=== PATIENT | male | born 1950 | race Caucasian/White ===

== ENCOUNTER → 2016-02-16 | Outpatient (CLI) | payer MEDICARE ==
[~2016-02-16] MED LIST: ACET50TA PO; LEVO500I7 PO; fosinopril PO
== END | disposition home or self-care (01) ==
LOC: M RAD 13:43
PROVIDERS: ATTEND Internal Medicine Medical Oncology
DX: C66.9 Malignant neoplasm of unspecified ureter (principal); Z53.8 Procedure and treatment not carried out for other reasons

== ENCOUNTER → 2016-02-24 | Outpatient (REF) | payer MEDICARE ==
[2016-02-24 20:17] LABS: THYROXINE (T4) 12.3 UG/DL (4.5-12.0)
== END ==
LOC: M LAB REF 16:34
PROVIDERS: ATTEND Internal Medicine Medical Oncology
DX: C77.2 Secondary and unspecified malignant neoplasm of intra-abdominal lymph nodes (principal); C65.2 Malignant neoplasm of left renal pelvis; C67.9 Malignant neoplasm of bladder, unspecified

== ENCOUNTER → 2016-03-01 | Outpatient (CLI) | payer MEDICARE ==
[~2016-03-01] MED LIST changes: +AMLO5TAB2 PO; +AMOX500T2 PO; +FERR325T PO; +FOSI20TA PO; +GABA300C3 PO; +INDO50CA PO; +MILKSUS PO; +MIRA33504 PO; +NORCOTAB PO; +OXYC1TAB23 PO; +OXYC20TA21 PO; +PANT40TA2 PO; +SENN1TAB2 PO; +TARTCAP PO; +VITA10002 PO; +ZYLO300T4 PO
--- NOTE | 2016-03-01 17:17 | REP ---
PET/CT: History: Ureteral carcinoma, metastatic. Monitoring response to systemic treatment. The patient is status-post left nephrectomy. Comparisons: Comparison PET-CT study 05/07/2014. TECHNIQUE: 69 minutes following the intravenous injection of a 8.5 mCi dose of F-18 FDG, three-dimensional PET scintigraphy is acquired from the skull base to the proximal thighs. Triplanar noncontrast CT scanning is acquired through the same anatomic range for attenuation correction, and image registration with scan parameters optimized to minimize radiation exposure to the patient. PET scintigraphy and CT datasets were fused and displayed on a workstation with multiplanar and projection display capability. PET/CT Findings: The patient's known right middle lobe lung mass is hypermetabolic: Maximum standard uptake value is 12.7. There is no other abnormal hypermetabolic uptake in the lung parenchyma. Head and neck soft-tissues are unremarkable. There are unfortunately multiple large hypermetabolic mass is distributed in the right lobe and left lobe of the liver. Maximum SUV value within these ranges up to 10.3. The largest of these is a confluent lesion measuring 12 cm. There are 9-10 separate liver mass lesions which are hypermetabolic. No abnormal adrenal uptake is seen. No abnormal uptake is seen in the left nephrectomy bed or along the course of the left ureter or retroperitoneum. No other abnormal hypermetabolic uptake is seen in the abdomen or pelvis. There is a focus of abnormal hypermetabolic uptake to the right of midline in the L5 vertebral body with maximum SUV value 7.2. This is compatible with a bony metastasis. Hypermetabolic uptake is also noted in a large lesion in the T9 vertebral body which extends through the pedicle on the left side into the posterior elements and which is associated with collapse. There appears to be epidural hypermetabolic uptake which raises a question of cord compression. Recommend thoracic spine MRI study without and with IV gadolinium. This is a new lesion when compared with prior chest CT study of 10/08/2015. No other hypermetabolic skeletal focus is seen. Impression: Unfortunately there is evidence of progressive metastatic disease with multiple hepatic metastases, two skeletal metastases, and one hypermetabolic mass in the right middle lobe of the lung. The T9 lesion in the thoracic spine shows findings suggestive of epidural disease and cord compression. Recommend thoracic spine MRI study for further evaluation of this. Signed by Nathan Garcia MD 03/01/2016 08:16 P
== END ==
LOC: M RAD 12:43
PROVIDERS: ATTEND Internal Medicine Medical Oncology
DX: C79.19 Secondary malignant neoplasm of other urinary organs (principal)
CPT/HCPCS: 78815; A9552

== ENCOUNTER 2016-03-02 14:24 | Outpatient (RCR) | payer MEDICARE ==
[~2016-03-02 14:24] MED LIST changes: -AMLO5TAB2 PO; -FOSI20TA PO; -INDO50CA PO; -OXYC1TAB23 PO; -TARTCAP PO; -VITA10002 PO; -ZYLO300T4 PO
[2016-03-06] MEDS ORDERED: AMLO5TAB2 PO (21:16)
[2016-03-06] MEDS ORDERED: INDO50CA PO (21:16)
[2016-03-06] MEDS ORDERED: ZYLO300T4 PO (21:16)
[2016-03-06] MEDS ORDERED: TARTCAP PO (21:16)
[2016-03-06] MEDS ORDERED: FOSI20TA PO (21:16)
[2016-03-06] MEDS ORDERED: OXYC1TAB23 PO (21:16)
[2016-03-06] MEDS ORDERED: VITA10002 PO (21:16)
--- NOTE | 2016-03-14 08:07 | RADONC ---
RADIATION ONCOLOGY PROGRESS NOTE DATE: 03/13/2016 Mr. Tejeda is presently at a dose of 2400 cGy to his thoracic spine and 900 cGy to his lumbar spine region. He is tolerating treatments quite well with no complaints at this time related to his radiation therapy. The patient reports that generally being in hospital he is getting pain medication which is controlling his pain. He is quite concerned about being discharged and not having enough narcotics. The patient's review of systems is positive for continued back pain but is otherwise noncontributory. He denies nausea, vomiting, fevers, chills, night sweats, diplopia, headaches, anxiety or depression, anorexia, weight loss, visual disturbances, chest pain, urinary or bowel difficulties, bone pain, or neurological problems. PHYSICAL EXAMINATION: The patient's skin is in good condition with no evidence of moist or dry desquamation. The remainder of his physical exam remains unchanged. Mr. Tejeda is tolerating treatments quite well and radiation will continue as scheduled.
[2016-03-14] MEDS ORDERED: FERR325T PO (12:43)
[2016-03-14] MEDS ORDERED: OXYC20TA21 PO (12:43)
[2016-03-14] MEDS ORDERED: MILKSUS PO (12:43)
[2016-03-14] MEDS ORDERED: PANT40TA2 PO (12:43)
[2016-03-14] MEDS ORDERED: MIRA33504 PO (12:43)
[2016-03-14] MEDS ORDERED: GABA300C3 PO (12:43)
[2016-03-14] MEDS ORDERED: NORCOTAB PO (12:43)
[2016-03-14] MEDS ORDERED: SENN1TAB2 PO (12:43)
[2016-03-14] MEDS ORDERED: AMOX500T2 PO (12:43)
== END 2016-03-14 ==
LOC: M ONCR 14:24
PROVIDERS: ATTEND Radiology Radiation Oncology
DX: C79.51 Secondary malignant neoplasm of bone (principal); C66.2 Malignant neoplasm of left ureter

== ENCOUNTER → 2016-03-02 | Outpatient (CLI) | payer MEDICARE ==
[~2016-03-02] MED LIST changes: -AMOX500T2 PO; -FERR325T PO; -GABA300C3 PO; -MILKSUS PO; -MIRA33504 PO; -NORCOTAB PO; -OXYC20TA21 PO; -PANT40TA2 PO; -SENN1TAB2 PO
== END ==
LOC: M ONCR 13:14
PROVIDERS: ATTEND Radiology Radiation Oncology
DX: C66.2 Malignant neoplasm of left ureter (principal); C79.51 Secondary malignant neoplasm of bone

== ENCOUNTER 2016-03-06 13:46 | Inpatient (IN) | payer MEDICARE ==
[~2016-03-06] VITALS: Ht 165.1 cm; Wt 107.5 kg
[~2016-03-06 13:46] MED LIST changes: -AMLO5TAB2 PO; -FOSI20TA PO; -INDO50CA PO; -OXYC1TAB23 PO; -TARTCAP PO; -VITA10002 PO; -ZOSYN 3.375 GM VIAL (J2543) As Ordered ONE; -ZYLO300T4 PO; -cefTRIAXone SOD 1 GM VIAL (J0696) As Ordered ONE
[2016-03-06] MEDS ORDERED: MORPHINE 4 MG/ML 1ML SYRINGE As Ordered ONE (14:23)
--- NOTE | 2016-03-06 15:31 | REP ---
Chest x-ray: Two views. History: Cough. Findings: Semi-erect AP and cross-table lateral views are presented. There is a 2.8 cm mass in the right upper lobe region again noted. This appears larger. No new infiltrate is seen. Heart is not enlarged. Pleural angles are sharp. There is mild wedging in one of the lower thoracic vertebrae which likely corresponds to the T9 lesion seen on PET/CT. Impression: No acute infiltrate. Right lung mass and slightly wedged lower thoracic vertebra noted. Signed by Nathan Garcia MD 03/06/2016 05:14 P
[2016-03-06] MEDS ORDERED: HYDROmorphone HCL 1 MG/ML SYRINGE (J1170) As Ordered ONE ×3 (16:50→23:25)
[2016-03-06] MEDS ORDERED: INDO50CA PO (21:16)
[2016-03-06] MEDS ORDERED: ZYLO300T4 PO (21:16)
[2016-03-06] MEDS ORDERED: VITA10002 PO (21:16)
[2016-03-06] MEDS ORDERED: OXYC1TAB23 PO (21:16)
[2016-03-06] MEDS ORDERED: TARTCAP PO (21:16)
[2016-03-06] MEDS ORDERED: AMLO5TAB2 PO (21:16)
[2016-03-06] MEDS ORDERED: FOSI20TA PO (21:16)
[2016-03-06] MEDS: NS 1,000 ML IV SCH (22:19)
[2016-03-06] MEDS ORDERED: NS 1,000 ML IV SCH (22:19)
[2016-03-06] MEDS ORDERED: ONDANSETRON 4MG/2ML VIAL (J2405) IV PRN (22:30)
[2016-03-06] MEDS ORDERED: diphenhydrAMINE INJ 50MG/ML VIAL (J1200) IV PRN (22:30)
[2016-03-06] MEDS ORDERED: MORPHINE PCA 1MG/ML 100ML CADD IV PRN (22:30)
[2016-03-06] MEDS ORDERED: NALOXONE INJ 0.4 MG/1 ML VIAL (J2310) IV PRN (22:30)
[2016-03-06] MEDS ORDERED: EPIDURAL/PCA KEYS XX PRN (22:30)
[2016-03-06] MEDS ORDERED: NALBUPHINE HCL 10 MG/ML AMP (J2300) IV PRN (22:30)
[2016-03-06 22:48] LABS: BASO % 0.5 % (0.0-1.0); EOS # 0.1 K/mm3 (0.0-0.50); EOS % 1.2 % (0.0-3.0); LARGE UNSTAINED CELL # 0.2 K/mm3 (0.0-0.4); LARGE UNSTAINED CELL % 1.6 % (0.0-4.0); LYMPH # 1.2 K/mm3 (1.5-4.5); LYMPH % 10.2 % (24.0-44.0); MEAN CORPUSCULAR HEMOGLOBIN 28.2 pg (27.0-33.0); MEAN CORPUSCULAR HGB CONC 31.7 g/dl (32.0-36.5); MEAN CORPUSCULAR VOLUME 88.8 fl (80.0-96.0); MONO # 0.8 K/mm3 (0.0-0.8); MONO % 7.5 % (0.0-5.0); NEUTROPHILS # 8.1 K/mm3 (1.8-7.7); PLATELET COUNT, AUTOMATED 251 k/mm3 (150-450); RED CELL DISTRIBUTION WIDTH 14.9 % (11.5-14.5); WHITE BLOOD COUNT 10.2 K/mm3 (4.0-10.0)
[2016-03-06 23:04] LABS: ERYTHROCYTE SEDIMENTATION RATE 115 mm/hr (0-20)
[2016-03-06 23:24] LABS: CALCIUM LEVEL 8.8 MG/DL (8.8-10.2); CREATININE FOR GFR 1.31 MG/DL (0.70-1.30); GLOMERULAR FILTRATION RATE 58.5 (>49); POTASSIUM SERUM 4.8 MEQ/L (3.5-5.1)
[2016-03-07] VITALS (12 sets, daily range): BP systolic 91–136; BP diastolic 50–89
--- NOTE | 2016-03-07 00:31 | HPE ---
DATE OF ADMISSION: 03/06/2016 This is a patient of Deisy Steen, Dr. Blanco, Dr. Mayen, Dr. Russo. CHIEF COMPLAINT: Back pain. The following is a summary of his presentation: This is a 65-year-old with a history of what he describes as bladder cancer, seems to be listed as ureteral cancer on the left, history of left-sided nephrectomy and what appears to be quite widely metastatic disease, status post chemotherapy, currently on radiation therapy for lumbar . He has had left-sided abdominal pain for weeks. He had a PET scan on 03/01/2016, after which his abdominal pain resolved. He did not have the official results of the PET scan yet, but based upon the read that I see, it looks as though there may be progressive metastatic disease with multiple hepatic metastases (mets), two skeletal mets and one hypermetabolic mass in the right middle lobe of the lung. There was a T9 lesion. On Sunday night, 03/03/2016, he developed coughing spells and developed pain in his low back which is lower lumbar. It is a sharp pain. He also developed pain in his right shoulder along with this. The shoulder pain has improved somewhat. He had a subjective fever with sweats on 03/03/2016 and 03/04/2016 but has not had that since. Today, on 03/06/2016, he was in for radiation therapy along with a bone scan. On transfer from the table for the bone scan to wheelchair or gurney, he developed sharp lumbar pain, which has been unrelenting since. He has come to the emergency department for evaluation. He has had morphine, Valium and Dilaudid without significant relief, and I was called for admission. ALLERGIES: No known drug allergies. MEDICATIONS AT HOME: Include - fosinopril - Percocet - Norvasc - allopurinol - Indomethacin - vitamin B12 - glucosamine chondroitin PAST MEDICAL HISTORY: Notable for gout, which has been quite severe since the diagnosis of cancer. In July of 2015, he had a 1-month long bout. Hypertension. Ureteral cancer on the left. Some sort of right eye surgery for a lazy eye as a child. Nephrectomy on the left in 2012. SOCIAL HISTORY: Never smoker. Does not use alcohol. He has only had three beers in 4 years. He lives in [place]. 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 FAMILY HISTORY: Notable for father who at age 78 with multiple medical issues, a mother who is alive and well at 85. REVIEW OF SYSTEMS: Notable for fever, sweats. No headache. No visual changes. No runny nose. No sore throat. He has had a cough, which is nonproductive. He has had back pain. No chest pain. Does not describe orthopnea or paroxysmal nocturnal dyspnea. Abdominal pain as previously described; otherwise unremarkable. PHYSICAL EXAMINATION: Blood pressure is 123/60, pulse 88, respiratory rate 16, temperature 99.8, pulse oximetry 94%. Weight is 106.6 kg with a body mass index of 39. He is awake, appropriately interactive, somewhat meandering in his speech. Head is normocephalic. Sinuses are nontender. Pupils are equal, round, reactive, anicteric, not injected. Nasal septum is midline. Mucous membranes are moist. Neck is supple, thick. Breathing is symmetrical, rested. I:E ratio is 1:3. Heart is in a regular rate and rhythm. Distal pulses 2+. Capillary refill is less than 2 seconds. Abdomen is soft, hypoactive bowel sounds, doughy, nontender. Rectal exam is notable for good tone and sensation being intact. He does have peripheral neuropathy, somewhat decreased sensation in both feet and hands. White count is 10.2, hemoglobin 10.4 and platelets of 251, neutrophils 79, lymphocytes 10.2, BNP is pending. INR is 0.97. UA is remarkably unremarkable. Blood culture is pending. Urine culture is pending. Chest x-ray done today shows no acute infiltrate. is as follows: A 65-year-old with acute onset and uncontrolled back pain due to a mechanical move, found to be febrile with history of cough and possible community-acquired or postobstructive pneumonia. PLAN: 1. For back pain, the patient has known metastatic spinal disease, is on radiation. There are no physical signs of cord impingement. 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 Consider consultation as needed in the morning. 2. The patient has febrile illness, known lung tumor and cough. The possibility of postobstructive pneumonia occurs to me. The patient will be started on Zosyn and Zithromax (Zithro) and monitored clinically. 3. The patient has ureteral cancer with widely metastatic disease. Might benefit from a visit from his oncologist, Dr. Russo, if deemed appropriate by the primary service to discuss further treatment options. 4. The patient has a history of gout. He is at risk for gouty attack during his stay. Can continue his allopurinol for now. 5. The patient has a history of hypertension and will likely hold his blood pressure medications currently in the setting of febrile illness and use of morphine. 6. Deep vein thrombosis (DVT) prophylaxis at this point will be mechanical, pending further workup.
[2016-03-07] MEDS ORDERED: AZITHROMYCIN INJ 500MG VIAL (J0456) As Ordered ONE (00:53)
[2016-03-07] MEDS: AZITHROMYCIN INJ 500 MG, VIAL MATE ADAPTER 1 EACH in D5W 250 ML IV SCH ×2 (01:05→22:00)
[2016-03-07] MEDS: ALLOPURINOL 300 MG TAB PO SCH ×2 (01:05→21:59)
[2016-03-07] MEDS: PIPERACILLIN/TAZOBACTAM SOD 3.375 GM in D5W MINI-BAG PLUS 50 ML IV SCH ×4 (02:05→18:18)
--- NOTE | 2016-03-07 05:42 | REP ---
MRI LUMBAR SPINE WITHOUT AND WITH CONTRAST: HISTORY: Metastasis. CONTRAST: ProHance 10 mL. Decreased signal intensity on T2-weighted images is present in the L3-4 through L5-S1 intervertebral discs. The discs are decreased in height. These findings are consistent with disc degeneration. There is no disc bulge or herniation at the L1-2 through L3-4 levels. There is hypertrophy of the posterior articulating facets at the L3-4 level. The nerves exit the neural foramina without compression. A diffuse disc bulge is present at the L4-5 level. There is minimal compression of the thecal sac. There is hypertrophy of the posterior articulating facets. The L4 nerves exit the neural foramina without compression. A diffuse disc bulge is present at the L5-S1 level. This abuts the thecal sac and S1 nerves. There is hypertrophy of the posterior articulating facets. The L5 nerves exit the neural foramina without compression. The conus medullaris is normal in appearance terminating at the level of the L1-2 intervertebral disc. An area of decreased signal intensity on T1-weighted images is present in the L5 vertebral body. There is extension into the right L5 pedicle. There is mild homogeneous enhancement with contrast. This is consistent with a metastasis. There is no fracture. There is no paravertebral or epidural extension. Increased signal intensity on T2-weighted images is present in the end plates of the L5 and S1 vertebral bodies. This represents degenerative change. IMPRESSION: 1. Diffuse disc bulge at the L4-5 level with minimal thecal sac compression. 2. Diffuse disc bulge at the L5-S1 level. This abuts the thecal sac and S1 nerves. 3. There is a metastatic lesion in the L5 vertebral body. There is no fracture. Signed by Baron Marquez MD 03/07/2016 08:46 A
--- NOTE | 2016-03-07 05:44 | REP ---
MRI THORACIC SPINE WITHOUT AND WITH CONTRAST: HISTORY: Metastasis. CONTRAST: ProHance 12 mL. There is no disc bulge or herniation. Decreased signal intensity on T1-weighted images is present in the T9 vertebral body. There is extension into the pedicles and left facet. There is very minimal loss of vertebral body height. There is mild homogeneous enhancement with contrast. Small paravertebral and epidural components are present. There is minimal spinal cord compression. There is extension into the left T9 neural foramen. There is compression of the left T9 nerve in the neural foramen. The right T9 and remaining neural foramen are patent. Normal signal intensity is present in the remaining thoracic vertebral bodies. There is no subluxation. The spinal cord is normal in signal intensity. IMPRESSION: There is a metastatic lesion in the T9 vertebral body with minimal loss of vertebral body height. There is paravertebral and epidural extension with minimal spinal cord compression. Signed by Baron Marquez MD 03/07/2016 08:47 A
[2016-03-07] MEDS ORDERED: ZOSYN 3.375 GM VIAL (J2543) As Ordered ONE (06:08)
[2016-03-07 08:20] LABS: CALCIUM LEVEL 9.3 MG/DL (8.8-10.2); CREATININE FOR GFR 1.52 MG/DL (0.70-1.30); GLOMERULAR FILTRATION RATE 49.2 (>49); POTASSIUM SERUM 4.4 MEQ/L (3.5-5.1)
[2016-03-07 08:32] LABS: MEAN CORPUSCULAR HEMOGLOBIN 28.9 pg (27.0-33.0); MEAN CORPUSCULAR HGB CONC 32.4 g/dl (32.0-36.5); MEAN CORPUSCULAR VOLUME 89.1 fl (80.0-96.0); RED CELL DISTRIBUTION WIDTH 13.7 % (11.5-14.5); WHITE BLOOD COUNT 10.2 K/mm3 (4.0-10.0)
[2016-03-07] MEDS: SENOKOT S TAB PO SCH ×2 (09:43→21:58)
--- NOTE | 2016-03-07 12:01 | IPNPDOC ---
Assessment/Plan Date Seen The patient was seen on 03/07/16. 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 for palliative XRT Deblasio 03/08 (2) Ureteral carcinoma Status: Chronic Response to Treatment: Stable Discussed With: Patient Problem Specific Plan: Monitor Clinically Problem Text: Pt is following with Zeenat/Karan/Alicia failed Tecentriq 03/06/16 WBBS T9/T10 uptake 03/06/16 thoracic/lumbar MRI T9/T10/L5 mets s cord compression 02/2016 PET progressive metastatic disease with multiple hepatic metastases, two skeletal metastases, and one hypermetabolic mass in the right middle lobe of the lung. The T9 lesion in the thoracic spine shows findings suggestive of epidural disease and cord compression. . (3) Metastatic cancer to spine Status: Acute Response to Treatment: Stable Problem Specific Plan: Monitor Clinically Problem Text: Pt reports that his oncology team is aware of his current condition. (4) Pneumonia Status: Acute Problem Text: D1 azithromycin/Zosyn ? post-obstructive PN-febrile/hypoxia 03/06/16 CXR no infiltrate Requiring O2 to maintain sats. Afebrile since admission, mild leukocytosis. (5) CKD (chronic kidney disease) stage 3, GFR 30-59 ml/min Status: Chronic Response to Treatment: Stable Problem Text: at baseline cr 1.5, stable lytes (6) Gout Status: Chronic Response to Treatment: Stable Problem Text: no recurrent flares on HD allo 300 (7) Hypertension Status: Chronic Response to Treatment: Stable Problem Text: Stable off 2 home BP meds Plan / VTE VTE Prophylaxis Ordered?: No Subjective Review of Systems CC/HPI Pt states pain is better controlled. He is currently receiving treatment for another bone lesion with radiation therapy. He is frustrated with the discovery of this new lesion. He notes that his breathing is significantly better than it was on presentation. General: Reports: Fatigue Constitutional: Denies: Chills, Fever ENT: Denies: Head Aches Pulmonary: Reports: Dyspnea (improved since arriving in ER), Denies: Cough Cardiovascular: Denies: Chest Pain, Palpitations Gastrointestinal: Denies: Diarrhea, Nausea, Vomiting Musculoskeletal: Reports: Back Pain (R sided, radiates into the low back) Neurological: Reports: Weakness Psych: Reports: Mood Normal Objective Physical Examination General Exam: Positive: Cooperative, No Acute Distress (appears sedated) ENT Exam: Positive: Mucous membr. moist/pink Neck Exam: Positive: Supple Chest Exam: Positive: Clear to auscultation, Diminished Heart Exam: Positive: Normal S1, Normal S2, Rate Normal, Regular Rhythm Abdomen Exam: Positive: Normal bowel sounds, Soft, Negative: Tenderness Extremity Exam: Negative: Edema Vital Signs/I&O Vital Signs Date Time Temp Pulse Resp B/P Pulse Ox O2 Delivery O2 Flow Rate FiO2 03/07/16 05:00 96.8 82 18 96/56 95 Nasal Cannula 2.0 I&O- Last 24 Hours up to 6 AM 03/07/16 05:59 Intake Total 395 ml Balance 395 ml Laboratory Data Labs 24H Laboratory Tests 2 03/06/16 20:44: Urine Amorphous Sediment , Urine Appearance CLEAR, Urine Color YELLOW, Urine pH 5.0, Urine Specific [place] 1.019, Urine Protein NEGATIVE, Urine Glucose (UA) NEGATIVE, Urine Ketones NEGATIVE, Urine Urobilinogen 0.2, Urine Bilirubin NEGATIVE, Urine Leukocyte Esterase NEGATIVE, Urine Bacteria (Auto) NEGATIVE, Urine Blood NEGATIVE, Urine Calcium Carbonate Cryst(Auto) , Urine Calcium Oxalate Cryst (Auto) , Urine Calcium Phosphate [place] (Auto) , Urine Cellular Casts , Urine Cystine Crystals , Urine Granular Casts (Auto) , Urine Hyaline Casts (Auto) 0, Urine Leucine Crystals , Urine Mucus (Auto) , Urine Nitrite NEGATIVE, Urine Oval Fat Bodies (Auto) , Urine RBC (Auto) 1, Urine Renal Epithelial Cells , Urine Sperm (Auto) , Urine Squamous Epithelial Cells 0, Urine Transitional Epithelial Cells , Urine Trichomonas (Auto) , Urine Triple Phosphate Cryst (Auto) , Urine Tyrosine Crystals , Urine Uric Acid Crystals ( Auto) , Urine WBC (Auto) 1, Urine Waxy Casts (Auto) , Urine Yeast-Like Cells ( Auto) 03/06/16 22:31: Anion Gap 9, White Blood Count 10.2H, Red Blood Count 3.69L, Hemoglobin 10.4L, Hematocrit 32.8L, Mean Corpuscular Volume 88.8, Mean Corpuscular Hemoglobin 28.2 , Mean Corpuscular Hemoglobin Concent 31.7L, Red Cell Distribution Width 14.9H, Platelet Count 251, Neutrophils (%) (Auto) 79.0H, Lymphocytes (%) (Auto) 10.2L, Monocytes (%) (Auto) 7.5H, Eosinophils (%) (Auto) 1.2, Basophils (%) (Auto) 0.5 , Neutrophils # (Auto) 8.1H, Lymphocytes # (Auto) 1.2L, Monocytes # (Auto) 0.8, Eosinophils # (Auto) 0.1, Basophils # (Auto) 0.0, C-Reactive Protein, Quantitative 21.60H, Blood Urea Nitrogen 19H, Creatinine 1.31H, Sodium Level 136 , Potassium Level 4.8, Chloride Level 99, Carbon Dioxide Level 28, Calcium Level 8.8, Erythrocyte Sedimentation Rate 115H, Glomerular Filtration Rate 58.5 , Large Unclassified Cells # 0.2, Large Unclassified Cells % 1.6 03/07/16 07:29: Anion Gap 13, Blood Urea Nitrogen 19H, Creatinine 1.52H, Sodium Level 135L, Potassium Level 4.4, Chloride Level 97L, Carbon Dioxide Level 25, Calcium Level 9.3, Glomerular Filtration Rate 49.2 CBC/BMP Laboratory Tests 03/06/16 22:31 Calcium Level 8.8, Red Blood Count 3.69 L, Mean Corpuscular Volume 88.8, Mean Corpuscular Hemoglobin 28.2, Mean Corpuscular Hemoglobin Concent 31.7 L, Red Cell Distribution Width 14.9 H, Neutrophils (%) (Auto) 79.0 H, Lymphocytes (%) ( Auto) 10.2 L, Monocytes (%) (Auto) 7.5 H, Eosinophils (%) (Auto) 1.2, Basophils (%) (Auto) 0.5, Neutrophils # (Auto) 8.1 H, Lymphocytes # (Auto) 1.2 L, Monocytes # (Auto) 0.8, Eosinophils # (Auto) 0.1, Basophils # (Auto) 0.0 03/07/16 07:29 Calcium Level 9.3, Red Blood Count 4.05 L, Mean Corpuscular Volume 89.1, Mean Corpuscular Hemoglobin 28.9, Mean Corpuscular Hemoglobin Concent 32.4, Red Cell Distribution Width 13.7 Microbiology Microbiology 03/06/16 Blood Culture, Received Pending 03/06/16 Blood Culture, Received Pending 03/06/16 Urine Culture, Received Pending ROE DICKSON PA-C Mar 07, 2016 12:01 Declan Serrano M.D. Mar 07, 2016 12:46
--- NOTE | 2016-03-07 14:18 | EDDOCDS ---
Nurse's Notes [facility] Name: Ángel Tejeda Age: 65 yrs Sex: Male : 1950 Arrival Date: 03/06/2016 Time: 13:46 Bed Admit Hold Private MD: Diagnosis: Pain in thoracic spine-mets Presentation: 03/06 13:54 Presenting complaint: Patient states: states early Sunday am onset of coughing spell. jmk Immediate low right back pain. constant and varying degree of pain. Is now constant. was at bone density testing today after radiation therapy for spinal tumor. has recvd 3 treatment so far. Acute neurological deficits are not present. Mechanism of Injury: No Mechanism of Injury. Adult Sepsis Screening: The patient does not have new or worsening altered mentation. Patient's respiratory rate is less than 22. Systolic blood pressure is greater than 100. Patient has a qSOFA score of 0- Negative Sepsis Screen. Suicide/Homicide risk assessment- the patient denies having any suicidal and/or homicidal ideations and does not present with any other emotional, behavioral or mental health complaints. Status: Patient is not a visitor services specialist or dependent. Transition of care: patient was not received from another setting of care. 13:54 Acuity: PENELOPE Level 3 [facility] 13:54 Method Of Arrival: Other [facility] Triage Assessment: 14:02 General: Appears uncomfortable, 10/10 pain. Pain: Pain currently is 10 out of 10 on a [facility] pain scale. Musculoskeletal: No deficits noted. Historical: - Allergies: no known allergies; - Home Meds: 1. fosinopril 20 mg oral tab 1 tab once daily 2. Percocet 5-325 mg Oral tab 1 tab every 6 hours 3. amlodipine 5 mg Oral tab 1 tab once daily 4. allopurinol 300 mg Oral tab 1 tab once daily 5. indomethacin 50 mg Oral cap 1 cap 2 times per day has not needed x weeks 6. Vitamin B-12 1,000 mcg Oral tab daily 7. glucosamine-chondroitin oral 750 mg oral daily - PMHx: Gout; Hypertension; renal cancer; right eye surgery; - PSHx: Nephrectomy- Left; - Social history: Smoking status: Patient uses tobacco products, current some day smoker. No barriers to communication noted. - Family history: Not pertinent. - : The pt / caregiver states he / she is not on anticoagulants. Home medication list is obtained from the patient. - Exposure Risk Screening:: None identified. Screenin:04 Screening information is obtained from the patient. Fall risk: No risks identified. jmk Assistance ADL's: requires no assistance with activities of daily living. Abuse/DV Screen: The patient / caregiver reports he/she is: not in a situation that causes fear, pain or injury. Nutritional screening: No deficits noted. Advance Directives: Currently, there is no health care proxy. There is no active DNR order. There is no living will. There is no Power of [employer]. Advance directive information has not previously been placed in an [facility] medical record. home support is adequate. Assessment: 14:05 General: Appears uncomfortable . Unable to straighten right leg.. jmk 15:26 General: Appears returned from x ray. states less pain 6/10, but still increases jmk significantly with attempted movement. Is now able to straighten leg. calmer presentation. 20:15 General: Appears in no apparent distress, patient returned from MRI. tolerated rs3 procedure well. Reports of lower back pain remains at 8/10. at bedside. waiting on MRI results. . 21:03 General: medicated for pain, hospitalist at bedside for evaluation. [facility] 22:02 General: Appears in no apparent distress, comfortable, Behavior is appropriate for age, cjh cooperative, patient states feeling much better since medicated and as long as laying still or not coughing, states tolerable at this time, will continue to monitor. 23:30 General: Appears in no apparent distress, comfortable, Behavior is appropriate for age, pml cooperative. Pain: Location: back Pain currently is 7 out of 10 on a pain scale. Neurological: Level of Consciousness is awake, alert, Oriented to person, place, time. Cardiovascular: Capillary refill < 3 seconds. Respiratory: Airway is patent Respiratory effort is even, unlabored. Derm: Skin is pink, warm & dry. 03/07 06:04 General: Report read off of Marie WARD sheets. Marie WARD had to leave floor for medical kas2 reasons. Assumed care of patient at this time.. 06:05 General: Appears in no apparent distress, comfortable, to be sleeping. Behavior is kas2 appropriate for age, cooperative. Neurological: Level of Consciousness is awake, alert, Oriented to person, place, time. Respiratory: Airway is patent Respiratory effort is even, unlabored, Respiratory pattern is regular, symmetrical. Derm: Skin is intact, Skin is dry, Skin is pink, warm & dry. Skin temperature is warm. 06:23 General: Zosyn 3.375G IV given as per orders.. kas2 Vital Signs: 03/06 14:02 BP 138 / 67; Pulse 89; Resp 16; Temp 99.8; Pulse Ox 94% ; Weight 106.59 kg; Height 5 jmk ft. 5 in. (165.10 cm); 15:26 BP 123 / 60; Pulse 88; Resp 16; Pain 6/10; k 21:02 BP 133 / 70; Pulse 93; Resp 18; Temp 101.4; Pulse Ox 90% ; Pain 8/10; [facility] 22:01 BP 134 / 67; Pulse 91; Resp 18; Temp 100.8; Pulse Ox 91% ; Pain 4/10; h 14:02 Body Mass Index 39.11 (106.59 kg, 165.10 cm) [facility] ED Course: 13:47 Patient visited by Faye Moss, [employer]pper [employer]. deg 13:47 Patient moved to Waiting deg 13:47 Patient moved to I1 / M1 deg 13:56 Triage Initiated k 14:04 The patient / caregiver is instructed regarding the plan of care and ED course. k 14:06 Shravan Lloyd PA-C is PHCP. ar2 14:06 Josue Ayers MD is Attending Physician. ar2 14:07 Patient visited by Shravan Lloyd PA-C. ar2 14:45 Inserted saline lock: 20 gauge in left antecubital area The patient tolerated the dls procedure well. 15:09 Patient visited by Nixon Wells. jml1 15:26 [facility] Payment Agreement was scanned into hi5 and attached to record. gjb 15:57 Chest, 2 View (pa\E\lat) Returned. EDMS 16:01 Patient visited by Nixon Wells. jml1 17:01 Patient visited by Nixon Wells. jml1 18:08 Patient visited by Nixon Wells. jml1 18:22 PHCP role handed off by Shravan Lloyd PA-C cc10 18:22 Curtis Zelaya PA-C is PHCP. cc10 18:26 Patient moved to MRI jmk 20:11 Patient visited by Kathy Torres,SYLVIA. rs3 20:11 Patient moved to I1 / M1 rs3 21:09 Harinder Garcia MD is Hospitalizing Provider. cc10 22:02 No procedures done that require assistance. cjh 22:22 Patient moved to Admit Hold sls1 22:43 CBC with Diff Sent. rs3 22:43 BMP Sent. rs3 22:43 ESR Sent. rs3 22:43 CRP Sent. rs3 23:31 Patient visited by Janelle Hinds RN. pml 03/07 00:13 Catherine Wu RN is Primary Nurse. sls1 00:13 Patient moved to 20 sls1 00:13 Patient moved to Admit Hold sls1 06:06 Patient visited by Catherine Wu RN. kas2 06:13 -MRI-Spine, Lumbar w/o foll by with con Returned. EDMS 06:13 MRI T SPINE W/O FOLL WITH CON Returned. EDMS 07:19 ICE CHIPS GIVEN. jml1 07:20 Patient visited by Nixon Wells. jml1 09:13 Primary Nurse role handed off by Catherine Wu,SYLVIA kr3 09:29 T-Sheet-- Draft Copy was scanned into hi5 and attached to record. gb Administered Medications: 03/06 14:45 Drug: Diazepam 5 mg [diazepam 5 mg/mL injection syringe (1 mL)] Route: IVP; Site: left dls antecubital; 15:29 Follow up: Response: Pain is decreased jmk 14:45 Drug: morphine 4 mg [morphine 4 mg/mL intravenous cartridge (1 mL)] Route: IVP; Site: dls left antecubital; 15:29 Follow up: Response: Pain is decreased jmk 18:10 Drug: Dilaudid - HYDROmorphone 0.5 mg [hydromorphone 1 mg/mL injection syringe (0.5 dls mL)] Route: IVP; Site: left antecubital; 21:00 Drug: Dilaudid - HYDROmorphone 1 mg [hydromorphone 1 mg/mL injection syringe (1 mL)] [facility] Route: IVP; Site: left antecubital; 22:01 Follow up: BP 134 / 67; Pulse 91 bpm; Resp 18 bpm; Temp 100.8; Pulse Ox 91% ; Pain 4/10 [facility] Adult; Response: Confirmed pt not driving.; No Adverse Reaction; Pain is decreased 23:30 Drug: Dilaudid - HYDROmorphone 1 mg [hydromorphone 1 mg/mL injection syringe (1 mL)] pml Route: IVP; Site: left antecubital; Order Results: Lab Order: CBC with Diff; SPEC'M 03/06/16 22:31 Test: WHITE BLOOD COUNT; Value: 10.2; Range: 4.0-10.0; Abnormal: Above high normal; Units: K/mm3; Status: F Test: RED BLOOD COUNT; Value: 3.69; Range: 4.30-6.10; Abnormal: Below low normal; Units: M/mm3; Status: F Test: HEMOGLOBIN; Value: 10.4; Range: 14.0-18.0; Abnormal: Below low normal; Units: g/dl; Status: F Test: HEMATOCRIT; Value: 32.8; Range: 42.0-52.0; Abnormal: Below low normal; Units: %; Status: F Test: MEAN CORPUSCULAR VOLUME; Value: 88.8; Range: 80.0-96.0; Units: fl; Status: F Test: MEAN CORPUSCULAR HEMOGLOBIN; Value: 28.2; Range: 27.0-33.0; Units: pg; Status: F Test: MEAN CORPUSCULAR HGB CONC; Value: 31.7; Range: 32.0-36.5; Abnormal: Below low normal; Units: g/dl; Status: F Test: RED CELL DISTRIBUTION WIDTH; Value: 14.9; Range: 11.5-14.5; Abnormal: Above high normal; Units: %; Status: F Test: PLATELET COUNT, AUTOMATED; Value: 251; Range: 150-450; Units: k/mm3; Status: F Test: NEUTROPHILS %; Value: 79.0; Range: 36.0-66.0; Abnormal: Above high normal; Units: %; Status: F Test: LYMPH %; Value: 10.2; Range: 24.0-44.0; Abnormal: Below low normal; Units: %; Status: F Test: MONO %; Value: 7.5; Range: 0.0-5.0; Abnormal: Above high normal; Units: %; Status: F Test: EOS %; Value: 1.2; Range: 0.0-3.0; Units: %; Status: F Test: BASO %; Value: 0.5; Range: 0.0-1.0; Units: %; Status: F Test: LARGE UNSTAINED CELL %; Value: 1.6; Range: 0.0-4.0; Units: %; Status: F Test: NEUTROPHILS #; Value: 8.1; Range: 1.8-7.7; Abnormal: Above high normal; Units: K/mm3; Status: F Test: LYMPH #; Value: 1.2; Range: 1.5-4.5; Abnormal: Below low normal; Units: K/mm3; Status: F Test: MONO #; Value: 0.8; Range: 0.0-0.8; Units: K/mm3; Status: F Test: EOS #; Value: 0.1; Range: 0.0-0.50; Units: K/mm3; Status: F Test: BASO #; Value: 0.0; Range: 0.0-0.2; Units: K/mm3; Status: F Test: LARGE UNSTAINED CELL #; Value: 0.2; Range: 0.0-0.4; Units: K/mm3; Status: F Lab Order: [facility]; SPEC'M 03/06/16 22:31 Test: GLUCOSE, FASTING; Value: 96; Range: 80-110; Units: MG/DL; Status: F Test: BLOOD UREA NITROGEN; Value: 19; Range: 7-18; Abnormal: Above high normal; Units: MG/DL; Status: F Test: CREATININE FOR GFR; Value: 1.31; Range: 0.70-1.30; Abnormal: Above high normal; Units: MG/DL; Status: F Test: GLOMERULAR FILTRATION RATE; Value: 58.5; Range: >49; Status: F Test: SODIUM LEVEL; Value: 136; Range: 136-145; Units: MEQ/L; Status: F Test: POTASSIUM SERUM; Value: 4.8; Range: 3.5-5.1; Units: MEQ/L; Status: F Test: CHLORIDE LEVEL; Value: 99; Range: 98-107; Units: MEQ/L; Status: F Test: CARBON DIOXIDE LEVEL; Value: 28; Range: 21-32; Units: MEQ/L; Status: F Test: ANION GAP; Value: 9; Range: 8-16; Units: MEQ/L; Status: F Test: CALCIUM LEVEL; Value: 8.8; Range: 8.8-10.2; Units: MG/DL; Status: F Test Note: ; Units are mL/min/1.73 m2 Chronic Kidney Disease Staging per NKF: Stage I & II GFR >=60 Normal to Mildly Decreased Stage III GFR 30-59 Moderately Decreased Stage IV GFR 15-29 Severely Decreased Stage V GFR <15 Very Little GFR Left ESRD GFR <15 on [facility] Lab Order: ESR; SPEC' 03/06/16 22:31 Test: ERYTHROCYTE SEDIMENTATION RATE; Value: 115; Range: 0-20; Abnormal: Above high normal; Units: mm/hr; Status: F Lab Order: CRP; SPEC' 03/06/16 22:31 Test: C REACTIVE PROTEIN QUANTITATIV; Value: 21.60; Range: 0.00-0.30; Abnormal: Above high normal; Units: MG/DL; Status: F Lab Order: UA; SPEC' 03/06/16 20:44 Test: APPEARANCE, URINE; Value: CLEAR; Range: CLEAR; Status: F Test: COLOR, URINE; Value: YELLOW; Range: YELLOW; Status: F Test: PH,URINE; Value: 5.0; Range: 5.0-9.0; Units: UNITS; Status: F Test: SPECIFIC GRAVITY URINE AUTO; Value: 1.019; Range: 1.002-1.035; Status: F Test: PROTEIN, URINE AUTO; Value: NEGATIVE; Range: NEGATIVE; Units: mg/dL; Status: F Test: GLUCOSE, URINE (UA) AUTO; Value: NEGATIVE; Range: NEGATIVE; Units: mg/dL; Status: F Test: KETONE, URINE AUTO; Value: NEGATIVE; Range: NEGATIVE; Units: mg/dL; Status: F Test: UROBILINOGEN, URINE AUTO; Value: 0.2; Range: 0.0-2.0; Units: mg/dL; Status: F Test: BILIRUBIN, URINE AUTO; Value: NEGATIVE; Range: NEGATIVE; Status: F Test: NITRITE, URINE AUTO; Value: NEGATIVE; Range: NEGATIVE; Status: F Test: LEUKOCYTE ESTERASE, URINE AUTO; Value: NEGATIVE; Range: NEGATIVE; Status: F Test: BLOOD, URINE BLOOD; Value: NEGATIVE; Range: NEGATIVE; Status: F Test: WBC, URINE AUTO; Value: 1; Range: 0-3; Units: /HPF; Status: F Test: RBC, URINE AUTO; Value: 1; Range: 0-3; Units: /HPF; Status: F Test: BACTERIA, URINE AUTO; Value: NEGATIVE; Range: NEGATIVE; Status: F Test: SQUAMOUS EPITHELIAL CELL UR AU; Value: 0; Range: 0-6; Units: /HPF; Status: F Test: HYALINE CAST, URINE AUTO; Value: 0; Range: 0-1; Units: /LPF; Status: F Lab Order: Urine Culture; SPEC'M 03/06/16 20:44 Test: URINE CULTURE; Value: <EXTERNAL COMMENT eCWMed> FULL REPORT IN LAB NOTES (eCW and Medent).; Status: F Test: URINE CULTURE; Value: URINE CULTURE RESULT NO GROWTH; Status: F Lab Order: COMPLETE BLOOD COUNT; SPEC'M 03/07/16 07:29 Test: WHITE BLOOD COUNT; Value: 10.2; Range: 4.0-10.0; Abnormal: Above high normal; Units: K/mm3; Status: F Test: RED BLOOD COUNT; Value: 4.05; Range: 4.30-6.10; Abnormal: Below low normal; Units: M/mm3; Status: F Test: HEMOGLOBIN; Value: 11.7; Range: 14.0-18.0; Abnormal: Below low normal; Units: g/dl; Status: F Test: HEMATOCRIT; Value: 36.1; Range: 42.0-52.0; Abnormal: Below low normal; Units: %; Status: F Test: MEAN CORPUSCULAR VOLUME; Value: 89.1; Range: 80.0-96.0; Units: fl; Status: F Test: MEAN CORPUSCULAR HEMOGLOBIN; Value: 28.9; Range: 27.0-33.0; Units: pg; Status: F Test: MEAN CORPUSCULAR HGB CONC; Value: 32.4; Range: 32.0-36.5; Units: g/dl; Status: F Test: RED CELL DISTRIBUTION WIDTH; Value: 13.7; Range: 11.5-14.5; Units: %; Status: F Test: PLATELET COUNT, AUTOMATED; Value: 322; Range: 150-450; Units: k/mm3; Status: F Lab Order: BASIC METABOLIC PROFILE; TAINA 03/07/16 07:29 Test: GLUCOSE, FASTING; Value: 103; Range: 80-110; Units: MG/DL; Status: F Test: BLOOD UREA NITROGEN; Value: 19; Range: 7-18; Abnormal: Above high normal; Units: MG/DL; Status: F Test: CREATININE FOR GFR; Value: 1.52; Range: 0.70-1.30; Abnormal: Above high normal; Units: MG/DL; Status: F Test: GLOMERULAR FILTRATION RATE; Value: 49.2; Range: >49; Status: F Test: SODIUM LEVEL; Value: 135; Range: 136-145; Abnormal: Below low normal; Units: MEQ/L; Status: F Test: POTASSIUM SERUM; Value: 4.4; Range: 3.5-5.1; Units: MEQ/L; Status: F Test: CHLORIDE LEVEL; Value: 97; Range: 98-107; Abnormal: Below low normal; Units: MEQ/L; Status: F Test: CARBON DIOXIDE LEVEL; Value: 25; Range: 21-32; Units: MEQ/L; Status: F Test: ANION GAP; Value: 13; Range: 8-16; Units: MEQ/L; Status: F Test: CALCIUM LEVEL; Value: 9.3; Range: 8.8-10.2; Units: MG/DL; Status: F Test Note: ; Units are mL/min/1.73 m2 Chronic Kidney Disease Staging per NKF: Stage I & II GFR >=60 Normal to Mildly Decreased Stage III GFR 30-59 Moderately Decreased Stage IV GFR 15-29 Severely Decreased Stage V GFR <15 Very Little GFR Left ESRD GFR <15 on [facility] Radiology Order: Chest, 2 View (pa\E\lat) Test: Chest, 2 View (pa\E\lat) REASON FOR EXAMINATION: Cough; Chest x-ray: Two views.; ; History: Cough.; ; Findings: Semi-erect AP and cross-table lateral views are presented. There is a; 2.8 cm mass in the right upper lobe region again noted. This appears larger. No; new infiltrate is seen. Heart is not enlarged. Pleural angles are sharp. There; is mild wedging in one of the lower thoracic vertebrae which likely corresponds; to the T9 lesion seen on PET/CT.; ; Impression:; ; No acute infiltrate. Right lung mass and slightly wedged lower thoracic vertebra; noted.; ; ; Signed by; Nathan Garcia MD 03/06/2016 05:14 P; Radiology Order: -MRI-Spine, Lumbar w/o foll by with con Test: -MRI-Spine, Lumbar w/o foll by with con REASON FOR EXAMINATION: bony mets, right radiculopathy, back pain; MRI LUMBAR SPINE WITHOUT AND WITH CONTRAST:; ; HISTORY: Metastasis.; ; CONTRAST: ProHance 10 mL.; ; Decreased signal intensity on T2-weighted images is present in the L3-4 through; L5-S1 intervertebral discs. The discs are decreased in height. These findings; are consistent with disc degeneration.; ; There is no disc bulge or herniation at the L1-2 through L3-4 levels. There is; hypertrophy of the posterior articulating facets at the L3-4 level. The nerves; exit the neural foramina without compression.; ; A diffuse disc bulge is present at the L4-5 level. There is minimal compression; of the thecal sac. There is hypertrophy of the posterior articulating facets.; The L4 nerves exit the neural foramina without compression.; ; A diffuse disc bulge is present at the L5-S1 level. This abuts the thecal sac; and S1 nerves. There is hypertrophy of the posterior articulating facets. The; L5 nerves exit the neural foramina without compression.; ; The conus medullaris is normal in appearance terminating at the level of the L1-2; intervertebral disc. An area of decreased signal intensity on T1-weighted images; is present in the L5 vertebral body. There is extension into the right L5; pedicle. There is mild homogeneous enhancement with contrast. This is; consistent with a metastasis. There is no fracture. There is no paravertebral; or epidural extension. Increased signal intensity on T2-weighted images is; present in the end plates of the L5 and S1 vertebral bodies. This represents; degenerative change.; ; IMPRESSION:; ; 1. Diffuse disc bulge at the L4-5 level with minimal thecal sac compression.; ; 2. Diffuse disc bulge at the L5-S1 level. This abuts the thecal sac and S1; nerves.; ; 3. There is a metastatic lesion in the L5 vertebral body. There is no fracture.; ; ; ; Signed by; Baron Marquez MD 03/07/2016 08:46 A; Radiology Order: MRI T SPINE W/O FOLL WITH CON Test: MRI T SPINE W/O FOLL WITH CON REASON FOR EXAMINATION: bony mets, back pain, right radiculopathy; MRI THORACIC SPINE WITHOUT AND WITH CONTRAST:; ; HISTORY: Metastasis.; ; CONTRAST: ProHance 12 mL.; ; There is no disc bulge or herniation. Decreased signal intensity on T1-weighted; images is present in the T9 vertebral body. There is extension into the pedicles; and left facet. There is very minimal loss of vertebral body height. There is; mild homogeneous enhancement with contrast. Small paravertebral and epidural; components are present. There is minimal spinal cord compression. There is; extension into the left T9 neural foramen. There is compression of the left T9; nerve in the neural foramen. The right T9 and remaining neural foramen are; patent. Normal signal intensity is present in the remaining thoracic vertebral; bodies. There is no subluxation. The spinal cord is normal in signal intensity.; ; ; IMPRESSION:; ; There is a metastatic lesion in the T9 vertebral body with minimal loss of; vertebral body height. There is paravertebral and epidural extension with; minimal spinal cord compression.; ; ; Signed by; Baron Marquez MD 03/07/2016 08:47 A; Outcome: 21:10 Decision to Hospitalize by Provider. 10 03/07 14:17 Patient left the ED. jml1 Signatures: Dispatcher [employer] EDMS Faye Moss, [employer] Unit deg Larry TrotterRN RN Felicia Ulloa RN RN dls Lucrecia Mckinney, Reg Reg gb Enriqueta Coy,RN RN kr3 Shravan Lloyd, PA-C PA-C ar2 Kathy Torres,RN RN rs3 Bhavna Gamez RN RN sls1 Nixon Wells jml1 Janelle Hinds,RN RN Ambreen NavaRN RN mike Curtis Zelaya, PA-C PA-C cc10 An Osman KimRN RN kas2 MTDD
--- NOTE | 2016-03-07 14:18 | EDDOCDS ---
Physician Documentation [facility] Name: Ángel Tejeda Age: 65 yrs Sex: Male : 1950 Arrival Date: 03/06/2016 Time: 13:46 Bed Admit Hold Private MD: Disposition: 03/06/16 21:10 Hospitalization ordered by Harinder Garcia for Observation. Preliminary diagnosis is Pain in thoracic spine - mets. - Bed requested for 4 [place]. - Status is Observation. jml1 - Condition is Stable. - Problem is an acute exacerbation. - Symptoms are unchanged. Historical: - Allergies: no known allergies; - Home Meds: 1. fosinopril 20 mg oral tab 1 tab once daily 2. Percocet 5-325 mg Oral tab 1 tab every 6 hours 3. amlodipine 5 mg Oral tab 1 tab once daily 4. allopurinol 300 mg Oral tab 1 tab once daily 5. indomethacin 50 mg Oral cap 1 cap 2 times per day has not needed x weeks 6. Vitamin B-12 1,000 mcg Oral tab daily 7. glucosamine-chondroitin oral 750 mg oral daily - PMHx: Gout; Hypertension; renal cancer; right eye surgery; - PSHx: Nephrectomy- Left; - Social history: Smoking status: Patient uses tobacco products, current some day smoker. No barriers to communication noted. - Family history: Not pertinent. - : The pt / caregiver states he / she is not on anticoagulants. Home medication list is obtained from the patient. - Exposure Risk Screening:: None identified. Vital Signs: 03/06 14:02 BP 138 / 67; Pulse 89; Resp 16; Temp 99.8; Pulse Ox 94% ; Weight 106.59 kg / 234.99 jmk lbs; Height 5 ft. 5 in. (165.10 cm); 15:26 BP 123 / 60; Pulse 88; Resp 16; Pain 6/10; [facility] 21:02 BP 133 / 70; Pulse 93; Resp 18; Temp 101.4; Pulse Ox 90% ; Pain 8/10; [facility] 22:01 BP 134 / 67; Pulse 91; Resp 18; Temp 100.8; Pulse Ox 91% ; Pain 4/10; [facility] 14:02 Body Mass Index 39.11 (106.59 kg, 165.10 cm) yonas MDM: 14:20 IV Saline Lock ordered. ar2 14:20 Diazepam 5 mg IVP once ordered. ar2 14:20 morphine 4 mg IVP once ordered. ar2 14:21 Chest, 2 View (pa\E\lat) Ordered. EDMS 15:26 [facility] Payment Agreement was scanned into [employer] and attached to record. gjb 15:26 Financial registration complete. gjb 16:18 MRI Screening Tool - Place on chart, inform RN ordered. ar2 16:18 -MRI-Spine, Lumbar w/o foll by with con Ordered. EDMS 16:18 Dilaudid - HYDROmorphone 0.5 mg IVP once; give prior to MRI ordered. ar2 16:20 NOTHING BY MOUTH+DIET ordered. EDMS 16:37 MRI Screening Tool - Place on chart, inform RN complete. dls 17:23 MRI T SPINE W/O FOLL WITH CON Ordered. EDMS 20:29 Dilaudid - HYDROmorphone 1 mg IVP once ordered. cc10 20:29 CBC with Diff Ordered. EDMS 20:29 BMP Ordered. EDMS 20:29 ESR Ordered. EDMS 20:30 CRP Ordered. EDMS 20:30 UA Ordered. EDMS 20:30 Urine Culture Ordered. EDMS 20:51 BED REQUEST+ADM ordered. EDMS 22:25 OTHER CUSTOM DIETS ordered. EDMS 22:25 COMPLETE BLOOD COUNT Ordered. EDMS 22:25 BASIC METABOLIC PROFILE Ordered. EDMS 22:25 BLOOD CULTURES Ordered. EDMS 22:25 BLOOD CULTURES Ordered. EDMS 22:27 UA Reviewed. cc10 22:27 Chest, 2 View (pa\E\lat) Reviewed. cc10 22:28 Admission / Observation Status ordered. EDMS 22:28 ELECTROCARDIOGRAM ADULT ordered. EDMS 23:30 Dilaudid - HYDROmorphone 1 mg IVP once ordered. pml 03/07 09:29 T-Sheet-- Draft Copy was scanned into [employer] and attached to record. gb Administered Medications: 03/06 14:45 Drug: Diazepam 5 mg [diazepam 5 mg/mL injection syringe (1 mL)] Route: IVP; Site: left dls antecubital; 15:29 Follow up: Response: Pain is decreased jmk 14:45 Drug: morphine 4 mg [morphine 4 mg/mL intravenous cartridge (1 mL)] Route: IVP; Site: dls left antecubital; 15:29 Follow up: Response: Pain is decreased jmk 18:10 Drug: Dilaudid - HYDROmorphone 0.5 mg [hydromorphone 1 mg/mL injection syringe (0.5 dls mL)] Route: IVP; Site: left antecubital; 21:00 Drug: Dilaudid - HYDROmorphone 1 mg [hydromorphone 1 mg/mL injection syringe (1 mL)] [facility] Route: IVP; Site: left antecubital; 22:01 Follow up: BP 134 / 67; Pulse 91 bpm; Resp 18 bpm; Temp 100.8; Pulse Ox 91% ; Pain /10 [facility] Adult; Response: Confirmed pt not driving.; No Adverse Reaction; Pain is decreased 23:30 Drug: Dilaudid - HYDROmorphone 1 mg [hydromorphone 1 mg/mL injection syringe (1 mL)] pml Route: IVP; Site: left antecubital; Signatures: Dispatcher [employer] EDMS Larry Trotter RN RN jmk Scott, Debra RN RN dls Lucrecia Mckinney, Reg Reg gb Shravan Lloyd PA-C PA-C arKathy Tiwari RN RN rs3 Nixon Wells jml1 Janelle Hinds RN RN pml Curtis Zelaya, PA-C PA-C cc10 Millicent Hdz RN RN [facility]2 An Osman Ambreen Lee RN [facility] The chart was reviewed and I authenticate all verbal orders and agree with the evaluation and treatment provided.Corrections: (The following items were deleted from the chart) 17:23 16:18 MRI-Spine, Thoracic with con+MR ordered. EDMS EDMS 17:23 16:19 MRI-Spine,Thoracic without con+MR ordered. EDMS EDMS Attachments: 15:26 [facility] Payment Agreement gj 03/07 09:29 T-Sheet-- Draft Copy gb MTDD
[2016-03-07] MEDS: NS 1,000 ML IV SCH (18:18)
[2016-03-08] MEDS: PIPERACILLIN/TAZOBACTAM SOD 3.375 GM in D5W MINI-BAG PLUS 50 ML IV SCH ×4 (01:45→17:57)
[2016-03-08 02:00] VITALS: BP 143/72
[2016-03-08 06:00] VITALS: BP 143/78
[2016-03-08 07:04] LABS: MEAN CORPUSCULAR HEMOGLOBIN 28.9 pg (27.0-33.0); MEAN CORPUSCULAR HGB CONC 32.6 g/dl (32.0-36.5); MEAN CORPUSCULAR VOLUME 88.6 fl (80.0-96.0); RED CELL DISTRIBUTION WIDTH 13.9 % (11.5-14.5); WHITE BLOOD COUNT 7.7 K/mm3 (4.0-10.0)
[2016-03-08 07:23] LABS: CALCIUM LEVEL 8.8 MG/DL (8.8-10.2); CREATININE FOR GFR 1.46 MG/DL (0.70-1.30); GLOMERULAR FILTRATION RATE 51.6 (>49); POTASSIUM SERUM 4.4 MEQ/L (3.5-5.1)
[2016-03-08] MEDS: SENOKOT S TAB PO SCH ×2 (09:22→22:05)
[2016-03-08] MEDS: NS 1,000 ML IV SCH ×2 (09:22→17:57)
[2016-03-08] MEDS: ENOXAPARIN 40 MG/0.4 ML SYRINGE (J1650) SC SCH (09:22)
[2016-03-08 10:30] VITALS: BP 147/78
[2016-03-08 14:00] VITALS: BP 137/62
[2016-03-08 18:00] VITALS: BP 127/70
--- NOTE | 2016-03-08 18:20 | ECGEPIP ---
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
--- NOTE | 2016-03-08 19:08 | CR.PDOC ---
[facility] Pain Clinic Consultation General Date of Consultation: 03/08/16 Consultation Report For: Froylan Trotter Vargas PERALTA-C Chief Complaint The patient is a 65-year-old male admitted with a reason for visit of Metastatic Cancer To Spine. Pain management is asked to see the patient for further evaluation and recommendations for low back pain. History of Present Illness Ángel Tejeda is a 65-year-old gentleman who was in his usual state of health but did begin experiencing increased pain initially in the abdomen and right groin in December 2015. He has been followed by Dr. Russo for left ureteral center with metastasis.Over the last several weeks began experiencing low back pain and he has begun radiation treatments with Dr. Vargas for this. His situation has been complicated by the presence of gout which delayed the ability to do a PET scan. This was finally accomplished on 03/01/2016. On 03/03/2016 he developed a severe cough without production and then developed significant pain in the low back. On 03/06/2016 he was at radiation therapy and then was being taken for a bone scan. On transfer from the table for the bone scan he developed sharp severe lumbar pain which took his breath away and left him unable to move. He was taken to the emergency room for further evaluation. He was given morphine and Valium and IV Dilaudid. Pain was unrelenting and he was admitted. Since admission he was started on a morphine AUTOMATION QA ANALYST. He reports that this has brought the pain under fairly good control as long as he does not move. Today he is noting the pain ranging anywhere from a 0/10 to us 7-8/10. He is also noting some significant pain bilaterally in the shoulders from the base of the neck to the shoulder joint. Eyes any numbness or tingling radiating into the hips or legs and none into the groin. He does have some persistent paresthesias in the hands and feet which she attributes to his previous chemotherapy. Home Medications Scheduled ([facility]) 1 Cap Cap 1 CAP PO DAILY (Reported) Allopurinol (Zyloprim) 300 Mg Tab 300 MG PO QHS (Reported) Amlodipine Besylate (Amlodipine Besylate) 5 Mg Tab 5 MG PO DAILY (Reported) Cyanocobalamin (Vitamin B-12) 1,000 Mcg Tab 1,000 MCG PO DAILY (Reported) Fosinopril Sodium (Fosinopril Sodium) 20 Mg Tab 20 MG PO DAILY (Reported) Scheduled PRN Indomethacin (Indomethacin) 50 Mg Cap 50 MG PO BID PRN PRN GOUT FLAREUP ( Reported) Oxycodone/Acetaminophen (Oxycodone/Acetaminophen 5-325 mg) 1 Tab Tab 1 TAB PO Q6H PRN PRN PAIN (Reported) Allergies Coded Allergies: No Known Allergies (Unverified , 12/16/12) Past Medical History Medical History Gout, hypertension, degenerative disc disease, status post left nephrectomy 2012 Family History Significant Family History: No pertinent family hx Social History Smoker: non-smoker Alcohol: rarely Drugs: denies Review of Systems Subjective Constitutional: Reports: chills, fever, nausea with pain, weakness, Denies: fatigue, unexplained weight loss, vomiting with pain HEENT: Denies: head aches, hearing problems, vision problems Skin: Denies: breakdown, lesions, rash Pulmonary: Reports: cough, dyspnea, shortness of breath Cardiovascular: Denies: chest pain, edema, palpitations Gastrointestinal: Reports: constipation Genitourinary: Denies: dysuria, hematuria, loss of bladder control Hematologic: Denies: blood dyscrasias, easy bleeding, easy bruising Endocrine: Denies: Diabetes mellitus Musculoskeletal: Reports: muscle pain, muscle stiffness, other (low back pain) , shoulder pain, spasms Neurological: Reports: numbness, pre-existing deficit, Denies: headache, migraines, seizures, tremors, weakness Psych: Reports: depression (situational anxiety and depression), Denies: thoughts of harming other, thoughts of self harm Physical Examination Physical Examination Vital Signs/I&O Vital Signs Date Time Temp Pulse Resp B/P Pulse Ox O2 Delivery O2 Flow Rate FiO2 03/08/16 14:00 98.8 86 20 137/62 96 Nasal Cannula 2.0 I&O- Last 24 Hours up to 6 AM 03/08/16 06:00 Intake Total 2520 ml Output Total 1825 ml Balance 695 ml General Exam: Positive: alert, attentive, moderate distress, oriented times three, talkative Visual Analog Score (VAS) For: 7 ENT EXAM: Positive: normocephalic Neck Exam: Negative: Lymphadenopathy, Thyromegaly Chest Exam: Positive: Clear to auscultation, Decreased breath sounds, Negative: Rales, Wheezing Heart Exam: Positive: Normal S1, S2, Regular rate and rhythm, Negative: Murmurs, Rubs Abdominal Exam: Positive: Normal bowel sounds, Other (mildly distended tender over right upper quadrant), Soft Extremity Exam: Positive: Edema (1+ bilateral lower extremity edema, anti- embolizing stockings in place) Skin Exam: Positive: Dry, Warm, Negative: Lesions, Rashes Neuro Exam: Positive: Muscle Strength U/L Ext., Normal Tone, Other (Walker used for balance), Posture is stooped, Reflexes 2+ Laboratory Data Labs 24H Laboratory Tests 2 03/08/16 06:33: Anion Gap 8, Blood Urea Nitrogen 17, Creatinine 1.46H, Sodium Level 132L, Potassium Level 4.4, Chloride Level 96L, Carbon Dioxide Level 28, Calcium Level 8.8, Glomerular Filtration Rate 51.6 CBC/BMP Laboratory Tests 03/08/16 06:33 Calcium Level 8.8, Red Blood Count 3.36 L, Mean Corpuscular Volume 88.6, Mean Corpuscular Hemoglobin 28.9, Mean Corpuscular Hemoglobin Concent 32.6, Red Cell Distribution Width 13.9 Microbiology Microbiology 03/06/16 Blood Culture - Preliminary, Resulted No growth after 24 hours . All specim... 03/06/16 Blood Culture - Preliminary, Resulted No growth after 24 hours . All specim... 03/06/16 Urine Culture - Final, Complete Diagnostic and Imaging Studies MRI of the lumbar spine completed on 03/06/2016 States diffuse disc bulge at L4- 5 with minimal thecal sac compression. There is a diffuse disc bulge at the L5- S1 level. This abuts the thecal sac and the S1 nerves. There is metastatic lesion at in the L5 vertebral body. There is no evidence of fracture. Nuclear med bone scan again completed on 03/06/2016. Demonstrated increased uptake in the T9 and T10 vertebral body regions compatible with a metastatic lesions seen on the pad/CT scans. There is arthritic uptake in the right hip. And no other skeletal lesions were seen. PET scan was completed on 03/01/2016. This demonstrated evidence of progressive metastatic disease with multiple hepatic metastasis to skeletal metastasis and 1 hyper about hypermetabolic mass in the right middle lobe of the lung. The T9 lesion in the thoracic spine shows findings suggestive of epidural disease and spinal cord compression. MRI of the thoracic spine was completed on 03/06/2016. This demonstrated a medicine static lesion in the T9 vertebral body with minimal loss of vertebral body height. There is paravertebral and epidural extension with minimal spinal cord compression noted. Assessment 1. Low back pain with MRI evidence of metastatic lesion to the lumbar spine. 2. Myofascial pain neck and shoulder region Recommendation and Plan I did contact Dr. Nicko lyn of the patient's service this evening. We would recommend starting patient on a long-acting opiate and would suggest OxyContin 20 mg 2 times a day. Would leave his morphine AUTOMATION QA ANALYST in place at this time. Patient reports that he has done well on with small doses of Percocet in the past. Would recommend starting on gabapentin 300 mg 3 times a day for nerve pain. An would also recommend a referral to Dr. Russo of oncology as patient and his are very anxious regarding the findings of his PET scan, and comprehensive treatment plan. Thank you Mr. Trotter and Dr. Lyn for allowing us to participate in the care of your patient Ángel Tejeda. We will be glad to follow along with you during his hospitalization. Cc please to Dr. Russo at [facility] oncology. Deisy Graves Mar 08, 2016 19:08
[2016-03-08] MEDS: ALLOPURINOL 300 MG TAB PO SCH (21:00)
[2016-03-08 22:00] VITALS: BP 126/66
[2016-03-08] MEDS: AZITHROMYCIN INJ 500 MG, VIAL MATE ADAPTER 1 EACH in D5W 250 ML IV SCH (22:04)
[2016-03-08] MEDS: oxyCODONE 20 MG CR TAB PO SCH (22:05)
[2016-03-08] MEDS: GABAPENTIN 300 MG CAP PO SCH (22:05)
--- NOTE | 2016-03-09 | IPNPDOC ---
Assessment/Plan Date Seen The patient was seen on 03/08/16. Problems Problems: (1) Intractable back pain Status: Acute Response to Treatment: Stable Problem Specific Plan: Monitor Clinically Problem Text: Currently on morphine STATUARY PAINTER, will work to transition to oral medication for pain control. for palliative XRT Alicia 03/08 03/08 has seen pain management, oral medications ordered and encouraged patient to try them (2) Ureteral carcinoma Status: Chronic Response to Treatment: Stable Discussed With: Patient Problem Specific Plan: Monitor Clinically Problem Text: Pt is following with Zeenta/Karan/Alicia failed Tecentriq 03/06/16 WBBS T9/T10 uptake 03/06/16 thoracic/lumbar MRI T9/T10/L5 mets s cord compression 02/2016 PET progressive metastatic disease with multiple hepatic metastases, two skeletal metastases, and one hypermetabolic mass in the right middle lobe of the lung. The T9 lesion in the thoracic spine shows findings suggestive of epidural disease and cord compression. . (3) Metastatic cancer to spine Status: Acute Response to Treatment: Stable Problem Specific Plan: Monitor Clinically Problem Text: Pt reports that his oncology team is aware of his current condition. (4) Pneumonia Status: Acute Problem Text: D1 azithromycin/Zosyn ? post-obstructive PN-febrile/hypoxia 03/06/16 CXR no infiltrate Requiring O2 to maintain sats. Afebrile since admission, mild leukocytosis. 03/08 -- patient remains on O2, on Zosyn and azithromycin, continues to complain of cough (5) CKD (chronic kidney disease) stage 3, GFR 30-59 ml/min Status: Chronic Response to Treatment: Stable Problem Text: at baseline cr 1.5, stable lytes (6) Gout Status: Chronic Response to Treatment: Stable Problem Text: no recurrent flares on HD allo 300 (7) Hypertension Status: Chronic Response to Treatment: Stable Problem Text: Stable off 2 home BP meds Plan / VTE VTE Prophylaxis Ordered?: No Subjective Review of Systems CC/HPI The patient is a 65-year-old male admitted with a reason for visit of Metastatic Cancer To Spine. Events since last encounter Patient complains of persistent discomfort, improved with the STATUARY PAINTER, but still significantly limiting his movement, activity, and sleep. He states he is pressing the STATUARY PAINTER every 10-15 minutes. He states he did see pain management just before my visit. He has multiple painful sensations in the same region. He is most comfortable when he lies as still as he can. Constitutional: Denies: Chills, Fever Pulmonary: Reports: Cough, Denies: Dyspnea Cardiovascular: Reports: Chest Pain Gastrointestinal: Reports: Abdominal Pain, Nausea, Vomiting Genitourinary: Reports: Other Symptoms (groin pain) Musculoskeletal: Reports: Back Pain, Leg Pain, Shoulder Pain Psych: Reports: Other Psych (poor sleep) Objective Physical Examination General Exam: Positive: Cooperative, Other (comfortable as long as he remains at rest) ENT Exam: Positive: Mucous membr. moist/pink Neck Exam: Positive: Supple Chest Exam: Positive: Clear to auscultation, Diminished Heart Exam: Positive: Normal S1, Normal S2, Rate Normal, Regular Rhythm Abdomen Exam: Positive: Normal bowel sounds, Soft, Negative: Tenderness Extremity Exam: Negative: Edema Vital Signs/I&O Vital Signs Date Time Temp Pulse Resp B/P Pulse Ox O2 Delivery O2 Flow Rate FiO2 03/08/16 22:05 16 03/08/16 22:00 100.0 90 126/66 95 Nasal Cannula 2.0 I&O- Last 24 Hours up to 6 AM 03/08/16 06:00 Intake Total 2520 ml Output Total 1825 ml Balance 695 ml Laboratory Data Labs 24H Laboratory Tests 2 03/08/16 06:33: Anion Gap 8, Blood Urea Nitrogen 17, Creatinine 1.46H, Sodium Level 132L, Potassium Level 4.4, Chloride Level 96L, Carbon Dioxide Level 28, Calcium Level 8.8, Glomerular Filtration Rate 51.6 CBC/BMP Laboratory Tests 03/08/16 06:33 Calcium Level 8.8, Red Blood Count 3.36 L, Mean Corpuscular Volume 88.6, Mean Corpuscular Hemoglobin 28.9, Mean Corpuscular Hemoglobin Concent 32.6, Red Cell Distribution Width 13.9 Microbiology Microbiology 03/06/16 Blood Culture - Preliminary, Resulted No Growth after 48 hours. All Specime... 03/06/16 Blood Culture - Preliminary, Resulted No Growth after 48 hours. All Specime... 03/06/16 Urine Culture - Final, Complete EMMA WEBER DO Mar 09, 2016 00:00
[2016-03-09] MEDS: PIPERACILLIN/TAZOBACTAM SOD 3.375 GM in D5W MINI-BAG PLUS 50 ML IV SCH ×4 (01:49→18:04)
[2016-03-09 02:00] VITALS: BP 124/65
[2016-03-09 06:00] VITALS: BP 137/72
[2016-03-09 06:13] LABS: MEAN CORPUSCULAR HEMOGLOBIN 28.5 pg (27.0-33.0); MEAN CORPUSCULAR HGB CONC 31.4 g/dl (32.0-36.5); MEAN CORPUSCULAR VOLUME 90.5 fl (80.0-96.0); RED CELL DISTRIBUTION WIDTH 14.8 % (11.5-14.5); WHITE BLOOD COUNT 7.1 K/mm3 (4.0-10.0)
[2016-03-09 06:23] LABS: CALCIUM LEVEL 8.7 MG/DL (8.8-10.2); CREATININE FOR GFR 1.52 MG/DL (0.70-1.30); GLOMERULAR FILTRATION RATE 49.2 (>49); POTASSIUM SERUM 4.1 MEQ/L (3.5-5.1)
[2016-03-09] MEDS: ENOXAPARIN 40 MG/0.4 ML SYRINGE (J1650) SC SCH (09:29)
[2016-03-09] MEDS: SENOKOT S TAB PO SCH ×2 (09:29→20:14)
[2016-03-09] MEDS: GABAPENTIN 300 MG CAP PO SCH ×3 (09:29→20:16)
[2016-03-09] MEDS: oxyCODONE 20 MG CR TAB PO SCH ×2 (09:30→20:13)
[2016-03-09 10:00] VITALS: BP 133/65
--- NOTE | 2016-03-09 11:28 | IPNPDOC ---
Assessment/Plan Date Seen The patient was seen on 03/09/16. Problems Problems: (1) Anemia Status: Acute Problem Text: obviously ACD, but caution more blood loss eric on Lovenox 03/09 down to 9.2 07/2015 hgb 14.9 (2) Intractable back pain Status: Acute Response to Treatment: Stable Problem Specific Plan: Monitor Clinically Problem Text: Currently on morphine DUAL RATE SUPERVISOR, will work to transition to oral medication for pain control. for palliative XRT Alicia 03/08 03/08 has seen pain management, oral medications ordered and encouraged patient to try them 03/09 - Oxycodone 20 mg po BID, will add [place] 5/325 1-2 tabs q4h prn c adequate control, d/c morphine DUAL RATE SUPERVISOR. no BM in 3D-increased regimen (3) Ureteral carcinoma Status: Chronic Response to Treatment: Stable Discussed With: Patient Problem Specific Plan: Monitor Clinically Problem Text: Pt is following with Zeenat/Karan/Alicia failed Tecentriq 03/06/16 WBBS T9/T10 uptake 03/06/16 thoracic/lumbar MRI T9/T10/L5 mets s cord compression 02/2016 PET progressive metastatic disease with multiple hepatic metastases, two skeletal metastases, and one hypermetabolic mass in the right middle lobe of the lung. The T9 lesion in the thoracic spine shows findings suggestive of epidural disease and cord compression. . (4) Metastatic cancer to spine Status: Acute Response to Treatment: Stable Problem Specific Plan: Monitor Clinically Problem Text: Pt reports that his oncology team is aware of his current condition. (5) Pneumonia Status: Acute Problem Text: D3 azithromycin/Zosyn ? post-obstructive PN-febrile/hypoxia 03/06/16 CXR no infiltrate Requiring O2 to maintain sats. Afebrile since admission, mild leukocytosis. 03/08 -- patient remains on O2, on Zosyn and azithromycin, continues to complain of cough 03/09 - Will attempt to wean O2, Zosyn/azithro d 3. (6) CKD (chronic kidney disease) stage 3, GFR 30-59 ml/min Status: Chronic Response to Treatment: Stable Problem Text: at baseline cr 1.5, stable lytes (7) Gout Status: Chronic Response to Treatment: Stable Problem Text: no recurrent flares on HD allo 300 (8) Hypertension Status: Chronic Response to Treatment: Stable Problem Text: Stable off 2 home BP meds Plan / VTE VTE Prophylaxis Ordered?: Yes Subjective Review of Systems CC/HPI Pt doing well. His pain is improved, he is taking Oxycodone 20 mg BID, and using less of the DUAL RATE SUPERVISOR. Hasn't had a BM. Constitutional: Denies: Chills, Fever ENT: Denies: Head Aches Pulmonary: Denies: Cough, Dyspnea Cardiovascular: Denies: Chest Pain, Palpitations Gastrointestinal: Denies: Diarrhea, Nausea, Vomiting Neurological: Reports: Weakness Psych: Reports: Mood Normal Objective Physical Examination General Exam: Positive: Cooperative, Other (comfortable as long as he remains at rest) ENT Exam: Positive: Mucous membr. moist/pink Neck Exam: Positive: Supple Chest Exam: Positive: Clear to auscultation, Diminished Heart Exam: Positive: Normal S1, Normal S2, Rate Normal, Regular Rhythm Abdomen Exam: Positive: Normal bowel sounds, Soft, Negative: Tenderness Extremity Exam: Negative: Edema Vital Signs/I&O Vital Signs Date Time Temp Pulse Resp B/P Pulse Ox O2 Delivery O2 Flow Rate FiO2 03/09/16 10:00 98.1 89 20 133/65 94 Nasal Cannula 2.0 I&O- Last 24 Hours up to 6 AM 03/09/16 06:00 Intake Total 2745 ml Output Total 1550 ml Balance 1195 ml Laboratory Data Labs 24H Laboratory Tests 2 03/09/16 05:36: Anion Gap 9, Blood Urea Nitrogen 16, Creatinine 1.52H, Sodium Level 134L, Potassium Level 4.1, Chloride Level 97L, Carbon Dioxide Level 28, Calcium Level 8.7L, Glomerular Filtration Rate 49.2 CBC/BMP Laboratory Tests 03/09/16 05:36 Calcium Level 8.7 L, Red Blood Count 3.23 L, Mean Corpuscular Volume 90.5, Mean Corpuscular Hemoglobin 28.5, Mean Corpuscular Hemoglobin Concent 31.4 L, Red Cell Distribution Width 14.8 H Microbiology Microbiology 03/06/16 Blood Culture - Preliminary, Resulted No Growth after 48 hours. All Specime... 03/06/16 Blood Culture - Preliminary, Resulted No Growth after 48 hours. All Specime... 03/06/16 Urine Culture - Final, Complete ROE DICKSON PA-C Mar 09, 2016 11:28 Declan Serrano M.D. Mar 09, 2016 16:00
[2016-03-09] MEDS: MOM 30ML SUSPENSION UDC PO PRN (12:00)
[2016-03-09] MEDS: NORCO, ANEXSIA 5/325MG TABLET (HYDROcodone/ACETAMINOPHEN) PO PRN ×2 (12:56→17:06)
[2016-03-09 13:39] VITALS: BP 133/74
[2016-03-09] MEDS: AZITHROMYCIN 250 MG TAB PO SCH (14:40)
--- NOTE | 2016-03-09 15:18 | EDDOCDS ---
Physician Documentation [facility] Name: Ángel Tejeda Age: 65 yrs Sex: Male : 1950 Arrival Date: 03/06/2016 Time: 13:46 Bed Admit Hold Private MD: Disposition: 03/06/16 21:10 Hospitalization ordered by Harinder Garcia for Observation. Preliminary diagnosis is Pain in thoracic spine - mets. - Bed requested for 4 [place]. - Status is Observation. jml1 - Condition is Stable. - Problem is an acute exacerbation. - Symptoms are unchanged. Historical: - Allergies: no known allergies; - Home Meds: 1. fosinopril 20 mg oral tab 1 tab once daily 2. Percocet 5-325 mg Oral tab 1 tab every 6 hours 3. amlodipine 5 mg Oral tab 1 tab once daily 4. allopurinol 300 mg Oral tab 1 tab once daily 5. indomethacin 50 mg Oral cap 1 cap 2 times per day has not needed x weeks 6. Vitamin B-12 1,000 mcg Oral tab daily 7. glucosamine-chondroitin oral 750 mg oral daily - PMHx: Gout; Hypertension; renal cancer; right eye surgery; - PSHx: Nephrectomy- Left; - Social history: Smoking status: Patient uses tobacco products, current some day smoker. No barriers to communication noted. - Family history: Not pertinent. - : The pt / caregiver states he / she is not on anticoagulants. Home medication list is obtained from the patient. - Exposure Risk Screening:: None identified. Vital Signs: 03/06 14:02 BP 138 / 67; Pulse 89; Resp 16; Temp 99.8; Pulse Ox 94% ; Weight 106.59 kg / 234.99 jmk lbs; Height 5 ft. 5 in. (165.10 cm); 15:26 BP 123 / 60; Pulse 88; Resp 16; Pain 6/10; [facility] 21:02 BP 133 / 70; Pulse 93; Resp 18; Temp 101.4; Pulse Ox 90% ; Pain 8/10; [facility] 22:01 BP 134 / 67; Pulse 91; Resp 18; Temp 100.8; Pulse Ox 91% ; Pain 4/10; [facility] 14:02 Body Mass Index 39.11 (106.59 kg, 165.10 cm) yonas MDM: 14:20 IV Saline Lock ordered. ar2 14:20 Diazepam 5 mg IVP once ordered. ar2 14:20 morphine 4 mg IVP once ordered. ar2 14:21 Chest, 2 View (pa\E\lat) Ordered. EDMS 15:26 [facility] Payment Agreement was scanned into [employer] and attached to record. gjb 15:26 Financial registration complete. gjb 16:18 MRI Screening Tool - Place on chart, inform RN ordered. ar2 16:18 -MRI-Spine, Lumbar w/o foll by with con Ordered. EDMS 16:18 Dilaudid - HYDROmorphone 0.5 mg IVP once; give prior to MRI ordered. ar2 16:20 NOTHING BY MOUTH+DIET ordered. EDMS 16:37 MRI Screening Tool - Place on chart, inform RN complete. dls 17:23 MRI T SPINE W/O FOLL WITH CON Ordered. EDMS 20:29 Dilaudid - HYDROmorphone 1 mg IVP once ordered. cc10 20:29 CBC with Diff Ordered. EDMS 20:29 BMP Ordered. EDMS 20:29 ESR Ordered. EDMS 20:30 CRP Ordered. EDMS 20:30 UA Ordered. EDMS 20:30 Urine Culture Ordered. EDMS 20:51 BED REQUEST+ADM ordered. EDMS 22:25 OTHER CUSTOM DIETS ordered. EDMS 22:25 COMPLETE BLOOD COUNT Ordered. EDMS 22:25 BASIC METABOLIC PROFILE Ordered. EDMS 22:25 BLOOD CULTURES Ordered. EDMS 22:25 BLOOD CULTURES Ordered. EDMS 22:27 UA Reviewed. cc10 22:27 Chest, 2 View (pa\E\lat) Reviewed. cc10 22:28 Admission / Observation Status ordered. EDMS 22:28 ELECTROCARDIOGRAM ADULT ordered. EDMS 23:30 Dilaudid - HYDROmorphone 1 mg IVP once ordered. pml 03/07 09:29 T-Sheet-- Draft Copy was scanned into [employer] and attached to record. gb Administered Medications: 03/06 14:45 Drug: Diazepam 5 mg [diazepam 5 mg/mL injection syringe (1 mL)] Route: IVP; Site: left dls antecubital; 15:29 Follow up: Response: Pain is decreased jmk 14:45 Drug: morphine 4 mg [morphine 4 mg/mL intravenous cartridge (1 mL)] Route: IVP; Site: dls left antecubital; 15:29 Follow up: Response: Pain is decreased jmk 18:10 Drug: Dilaudid - HYDROmorphone 0.5 mg [hydromorphone 1 mg/mL injection syringe (0.5 dls mL)] Route: IVP; Site: left antecubital; 21:00 Drug: Dilaudid - HYDROmorphone 1 mg [hydromorphone 1 mg/mL injection syringe (1 mL)] [facility] Route: IVP; Site: left antecubital; 22:01 Follow up: BP 134 / 67; Pulse 91 bpm; Resp 18 bpm; Temp 100.8; Pulse Ox 91% ; Pain /10 [facility] Adult; Response: Confirmed pt not driving.; No Adverse Reaction; Pain is decreased 23:30 Drug: Dilaudid - HYDROmorphone 1 mg [hydromorphone 1 mg/mL injection syringe (1 mL)] pml Route: IVP; Site: left antecubital; Signatures: Dispatcher [employer] EDMS Larry Trotter RN RN jmk Scott, Debra RN RN dls Lucrecia Mckinney, Reg Reg gb Shravan Lloyd PA-C PA-C arKathy Tiwari RN RN rs3 Nixon Wells jml1 Janelle Hinds RN RN pml Curtis Zelaya, PA-C PA-C cc10 Millicent Hdz RN RN [facility]2 An Osman Ambreen Lee RN [facility] The chart was reviewed and I authenticate all verbal orders and agree with the evaluation and treatment provided.Corrections: (The following items were deleted from the chart) 17:23 16:18 MRI-Spine, Thoracic with con+MR ordered. EDMS EDMS 17:23 16:19 MRI-Spine,Thoracic without con+MR ordered. EDMS EDMS Attachments: 15:26 [facility] Payment Agreement gj 03/07 09:29 T-Sheet-- Draft Copy gb Chart Complete MTDD
--- NOTE | 2016-03-09 15:18 | EDDOCDS ---
Physician Documentation [facility] Name: Ángel Tejeda Age: 65 yrs Sex: Male : 1950 Arrival Date: 03/06/2016 Time: 13:46 Bed Admit Hold Private MD: Disposition: 03/06/16 21:10 Hospitalization ordered by Harinder Garcia for Observation. Preliminary diagnosis is Pain in thoracic spine - mets. - Bed requested for 4 [place]. - Status is Observation. jml1 - Condition is Stable. - Problem is an acute exacerbation. - Symptoms are unchanged. Historical: - Allergies: no known allergies; - Home Meds: 1. fosinopril 20 mg oral tab 1 tab once daily 2. Percocet 5-325 mg Oral tab 1 tab every 6 hours 3. amlodipine 5 mg Oral tab 1 tab once daily 4. allopurinol 300 mg Oral tab 1 tab once daily 5. indomethacin 50 mg Oral cap 1 cap 2 times per day has not needed x weeks 6. Vitamin B-12 1,000 mcg Oral tab daily 7. glucosamine-chondroitin oral 750 mg oral daily - PMHx: Gout; Hypertension; renal cancer; right eye surgery; - PSHx: Nephrectomy- Left; - Social history: Smoking status: Patient uses tobacco products, current some day smoker. No barriers to communication noted. - Family history: Not pertinent. - : The pt / caregiver states he / she is not on anticoagulants. Home medication list is obtained from the patient. - Exposure Risk Screening:: None identified. Vital Signs: 03/06 14:02 BP 138 / 67; Pulse 89; Resp 16; Temp 99.8; Pulse Ox 94% ; Weight 106.59 kg / 234.99 jmk lbs; Height 5 ft. 5 in. (165.10 cm); 15:26 BP 123 / 60; Pulse 88; Resp 16; Pain 6/10; [facility] 21:02 BP 133 / 70; Pulse 93; Resp 18; Temp 101.4; Pulse Ox 90% ; Pain 8/10; [facility] 22:01 BP 134 / 67; Pulse 91; Resp 18; Temp 100.8; Pulse Ox 91% ; Pain 4/10; [facility] 14:02 Body Mass Index 39.11 (106.59 kg, 165.10 cm) yonas MDM: 14:20 IV Saline Lock ordered. ar2 14:20 Diazepam 5 mg IVP once ordered. ar2 14:20 morphine 4 mg IVP once ordered. ar2 14:21 Chest, 2 View (pa\E\lat) Ordered. EDMS 15:26 [facility] Payment Agreement was scanned into [employer] and attached to record. gjb 15:26 Financial registration complete. gjb 16:18 MRI Screening Tool - Place on chart, inform RN ordered. ar2 16:18 -MRI-Spine, Lumbar w/o foll by with con Ordered. EDMS 16:18 Dilaudid - HYDROmorphone 0.5 mg IVP once; give prior to MRI ordered. ar2 16:20 NOTHING BY MOUTH+DIET ordered. EDMS 16:37 MRI Screening Tool - Place on chart, inform RN complete. dls 17:23 MRI T SPINE W/O FOLL WITH CON Ordered. EDMS 20:29 Dilaudid - HYDROmorphone 1 mg IVP once ordered. cc10 20:29 CBC with Diff Ordered. EDMS 20:29 BMP Ordered. EDMS 20:29 ESR Ordered. EDMS 20:30 CRP Ordered. EDMS 20:30 UA Ordered. EDMS 20:30 Urine Culture Ordered. EDMS 20:51 BED REQUEST+ADM ordered. EDMS 22:25 OTHER CUSTOM DIETS ordered. EDMS 22:25 COMPLETE BLOOD COUNT Ordered. EDMS 22:25 BASIC METABOLIC PROFILE Ordered. EDMS 22:25 BLOOD CULTURES Ordered. EDMS 22:25 BLOOD CULTURES Ordered. EDMS 22:27 UA Reviewed. cc10 22:27 Chest, 2 View (pa\E\lat) Reviewed. cc10 22:28 Admission / Observation Status ordered. EDMS 22:28 ELECTROCARDIOGRAM ADULT ordered. EDMS 23:30 Dilaudid - HYDROmorphone 1 mg IVP once ordered. pml 03/07 09:29 T-Sheet-- Draft Copy was scanned into [employer] and attached to record. gb Administered Medications: 03/06 14:45 Drug: Diazepam 5 mg [diazepam 5 mg/mL injection syringe (1 mL)] Route: IVP; Site: left dls antecubital; 15:29 Follow up: Response: Pain is decreased jmk 14:45 Drug: morphine 4 mg [morphine 4 mg/mL intravenous cartridge (1 mL)] Route: IVP; Site: dls left antecubital; 15:29 Follow up: Response: Pain is decreased jmk 18:10 Drug: Dilaudid - HYDROmorphone 0.5 mg [hydromorphone 1 mg/mL injection syringe (0.5 dls mL)] Route: IVP; Site: left antecubital; 21:00 Drug: Dilaudid - HYDROmorphone 1 mg [hydromorphone 1 mg/mL injection syringe (1 mL)] [facility] Route: IVP; Site: left antecubital; 22:01 Follow up: BP 134 / 67; Pulse 91 bpm; Resp 18 bpm; Temp 100.8; Pulse Ox 91% ; Pain /10 [facility] Adult; Response: Confirmed pt not driving.; No Adverse Reaction; Pain is decreased 23:30 Drug: Dilaudid - HYDROmorphone 1 mg [hydromorphone 1 mg/mL injection syringe (1 mL)] pml Route: IVP; Site: left antecubital; Signatures: Dispatcher [employer] EDMS Larry Trotter RN RN jmk Scott, Debra RN RN dls Lucrecia Mckinney, Reg Reg gb Shravan Lloyd PA-C PA-C arKathy Tiwari RN RN rs3 Nixon Wells jml1 Janelle Hinds RN RN pml Curtis Zelaya, PA-C PA-C cc10 Millicent Hdz RN RN [facility]2 An Osman Ambreen Lee RN [facility] The chart was reviewed and I authenticate all verbal orders and agree with the evaluation and treatment provided.Corrections: (The following items were deleted from the chart) 17:23 16:18 MRI-Spine, Thoracic with con+MR ordered. EDMS EDMS 17:23 16:19 MRI-Spine,Thoracic without con+MR ordered. EDMS EDMS Attachments: 15:26 [facility] Payment Agreement gj 03/07 09:29 T-Sheet-- Draft Copy gb Chart Complete MTDD
--- NOTE | 2016-03-09 15:19 | EDDOCDS ---
Nurse's Notes [facility] Name: Ángel Tejeda Age: 65 yrs Sex: Male : 1950 Arrival Date: 03/06/2016 Time: 13:46 Bed Admit Hold Private MD: Diagnosis: Pain in thoracic spine-mets Presentation: 03/06 13:54 Presenting complaint: Patient states: states early Sunday am onset of coughing spell. jmk Immediate low right back pain. constant and varying degree of pain. Is now constant. was at bone density testing today after radiation therapy for spinal tumor. has recvd 3 treatment so far. Acute neurological deficits are not present. Mechanism of Injury: No Mechanism of Injury. Adult Sepsis Screening: The patient does not have new or worsening altered mentation. Patient's respiratory rate is less than 22. Systolic blood pressure is greater than 100. Patient has a qSOFA score of 0- Negative Sepsis Screen. Suicide/Homicide risk assessment- the patient denies having any suicidal and/or homicidal ideations and does not present with any other emotional, behavioral or mental health complaints. Status: Patient is not a surgical services tech or dependent. Transition of care: patient was not received from another setting of care. 13:54 Acuity: PENELOPE Level 3 [facility] 13:54 Method Of Arrival: Other [facility] Triage Assessment: 14:02 General: Appears uncomfortable, 10/10 pain. Pain: Pain currently is 10 out of 10 on a [facility] pain scale. Musculoskeletal: No deficits noted. Historical: - Allergies: no known allergies; - Home Meds: 1. fosinopril 20 mg oral tab 1 tab once daily 2. Percocet 5-325 mg Oral tab 1 tab every 6 hours 3. amlodipine 5 mg Oral tab 1 tab once daily 4. allopurinol 300 mg Oral tab 1 tab once daily 5. indomethacin 50 mg Oral cap 1 cap 2 times per day has not needed x weeks 6. Vitamin B-12 1,000 mcg Oral tab daily 7. glucosamine-chondroitin oral 750 mg oral daily - PMHx: Gout; Hypertension; renal cancer; right eye surgery; - PSHx: Nephrectomy- Left; - Social history: Smoking status: Patient uses tobacco products, current some day smoker. No barriers to communication noted. - Family history: Not pertinent. - : The pt / caregiver states he / she is not on anticoagulants. Home medication list is obtained from the patient. - Exposure Risk Screening:: None identified. Screenin:04 Screening information is obtained from the patient. Fall risk: No risks identified. jmk Assistance ADL's: requires no assistance with activities of daily living. Abuse/DV Screen: The patient / caregiver reports he/she is: not in a situation that causes fear, pain or injury. Nutritional screening: No deficits noted. Advance Directives: Currently, there is no health care proxy. There is no active DNR order. There is no living will. There is no Power of Director Of [employer]. Advance directive information has not previously been placed in an [facility] medical record. home support is adequate. Assessment: 14:05 General: Appears uncomfortable . Unable to straighten right leg.. jmk 15:26 General: Appears returned from x ray. states less pain 6/10, but still increases jmk significantly with attempted movement. Is now able to straighten leg. calmer presentation. 20:15 General: Appears in no apparent distress, patient returned from MRI. tolerated rs3 procedure well. Reports of lower back pain remains at 8/10. at bedside. waiting on MRI results. . 21:03 General: medicated for pain, hospitalist at bedside for evaluation. [facility] 22:02 General: Appears in no apparent distress, comfortable, Behavior is appropriate for age, cjh cooperative, patient states feeling much better since medicated and as long as laying still or not coughing, states tolerable at this time, will continue to monitor. 23:30 General: Appears in no apparent distress, comfortable, Behavior is appropriate for age, pml cooperative. Pain: Location: back Pain currently is 7 out of 10 on a pain scale. Neurological: Level of Consciousness is awake, alert, Oriented to person, place, time. Cardiovascular: Capillary refill < 3 seconds. Respiratory: Airway is patent Respiratory effort is even, unlabored. Derm: Skin is pink, warm & dry. 03/07 06:04 General: Report read off of Marie WARD sheets. Marie WARD had to leave floor for medical kas2 reasons. Assumed care of patient at this time.. 06:05 General: Appears in no apparent distress, comfortable, to be sleeping. Behavior is kas2 appropriate for age, cooperative. Neurological: Level of Consciousness is awake, alert, Oriented to person, place, time. Respiratory: Airway is patent Respiratory effort is even, unlabored, Respiratory pattern is regular, symmetrical. Derm: Skin is intact, Skin is dry, Skin is pink, warm & dry. Skin temperature is warm. 06:23 General: Zosyn 3.375G IV given as per orders.. kas2 Vital Signs: 03/06 14:02 BP 138 / 67; Pulse 89; Resp 16; Temp 99.8; Pulse Ox 94% ; Weight 106.59 kg; Height 5 jmk ft. 5 in. (165.10 cm); 15:26 BP 123 / 60; Pulse 88; Resp 16; Pain 6/10; k 21:02 BP 133 / 70; Pulse 93; Resp 18; Temp 101.4; Pulse Ox 90% ; Pain 8/10; [facility] 22:01 BP 134 / 67; Pulse 91; Resp 18; Temp 100.8; Pulse Ox 91% ; Pain 4/10; h 14:02 Body Mass Index 39.11 (106.59 kg, 165.10 cm) [facility] ED Course: 13:47 Patient visited by Faye Moss, Informatics Manager. deg 13:47 Patient moved to Waiting deg 13:47 Patient moved to I1 / M1 deg 13:56 Triage Initiated k 14:04 The patient / caregiver is instructed regarding the plan of care and ED course. k 14:06 Shravan Lloyd PA-C is PHCP. ar2 14:06 Josue Ayers MD is Attending Physician. ar2 14:07 Patient visited by Shravan Lloyd PA-C. ar2 14:45 Inserted saline lock: 20 gauge in left antecubital area The patient tolerated the dls procedure well. 15:09 Patient visited by Nixon Wells. jml1 15:26 [facility] Payment Agreement was scanned into [id number] and attached to record. gjb 15:57 Chest, 2 View (pa\E\lat) Returned. EDMS 16:01 Patient visited by Nixon Wells. jml1 17:01 Patient visited by Nixon Wells. jml1 18:08 Patient visited by Nixon Wells. jml1 18:22 PHCP role handed off by Shravan Lloyd PA-C cc10 18:22 Curtis Zelaya PA-C is PHCP. cc10 18:26 Patient moved to MRI jmk 20:11 Patient visited by Kathy Torres,SYLVIA. rs3 20:11 Patient moved to I1 / M1 rs3 21:09 Harinder Garcia MD is Hospitalizing Provider. cc10 22:02 No procedures done that require assistance. cjh 22:22 Patient moved to Admit Hold sls1 22:43 CBC with Diff Sent. rs3 22:43 BMP Sent. rs3 22:43 ESR Sent. rs3 22:43 CRP Sent. rs3 23:31 Patient visited by Janelle Hinds RN. pml 03/07 00:13 Catherine Wu RN is Primary Nurse. sls1 00:13 Patient moved to 20 sls1 00:13 Patient moved to Admit Hold sls1 06:06 Patient visited by Catherine Wu RN. kas2 06:13 -MRI-Spine, Lumbar w/o foll by with con Returned. EDMS 06:13 MRI T SPINE W/O FOLL WITH CON Returned. EDMS 07:19 ICE CHIPS GIVEN. jml1 07:20 Patient visited by Nixon Wells. jml1 09:13 Primary Nurse role handed off by Catherine Wu,SYLVIA kr3 09:29 T-Sheet-- Draft Copy was scanned into [id number] and attached to record. gb Administered Medications: 03/06 14:45 Drug: Diazepam 5 mg [diazepam 5 mg/mL injection syringe (1 mL)] Route: IVP; Site: left dls antecubital; 15:29 Follow up: Response: Pain is decreased jmk 14:45 Drug: morphine 4 mg [morphine 4 mg/mL intravenous cartridge (1 mL)] Route: IVP; Site: dls left antecubital; 15:29 Follow up: Response: Pain is decreased jmk 18:10 Drug: Dilaudid - HYDROmorphone 0.5 mg [hydromorphone 1 mg/mL injection syringe (0.5 dls mL)] Route: IVP; Site: left antecubital; 21:00 Drug: Dilaudid - HYDROmorphone 1 mg [hydromorphone 1 mg/mL injection syringe (1 mL)] [facility] Route: IVP; Site: left antecubital; 22:01 Follow up: BP 134 / 67; Pulse 91 bpm; Resp 18 bpm; Temp 100.8; Pulse Ox 91% ; Pain 4/10 [facility] Adult; Response: Confirmed pt not driving.; No Adverse Reaction; Pain is decreased 23:30 Drug: Dilaudid - HYDROmorphone 1 mg [hydromorphone 1 mg/mL injection syringe (1 mL)] pml Route: IVP; Site: left antecubital; Order Results: Lab Order: CBC with Diff; SPEC'M 03/06/16 22:31 Test: WHITE BLOOD COUNT; Value: 10.2; Range: 4.0-10.0; Abnormal: Above high normal; Units: K/mm3; Status: F Test: RED BLOOD COUNT; Value: 3.69; Range: 4.30-6.10; Abnormal: Below low normal; Units: M/mm3; Status: F Test: HEMOGLOBIN; Value: 10.4; Range: 14.0-18.0; Abnormal: Below low normal; Units: g/dl; Status: F Test: HEMATOCRIT; Value: 32.8; Range: 42.0-52.0; Abnormal: Below low normal; Units: %; Status: F Test: MEAN CORPUSCULAR VOLUME; Value: 88.8; Range: 80.0-96.0; Units: fl; Status: F Test: MEAN CORPUSCULAR HEMOGLOBIN; Value: 28.2; Range: 27.0-33.0; Units: pg; Status: F Test: MEAN CORPUSCULAR HGB CONC; Value: 31.7; Range: 32.0-36.5; Abnormal: Below low normal; Units: g/dl; Status: F Test: RED CELL DISTRIBUTION WIDTH; Value: 14.9; Range: 11.5-14.5; Abnormal: Above high normal; Units: %; Status: F Test: PLATELET COUNT, AUTOMATED; Value: 251; Range: 150-450; Units: k/mm3; Status: F Test: NEUTROPHILS %; Value: 79.0; Range: 36.0-66.0; Abnormal: Above high normal; Units: %; Status: F Test: LYMPH %; Value: 10.2; Range: 24.0-44.0; Abnormal: Below low normal; Units: %; Status: F Test: MONO %; Value: 7.5; Range: 0.0-5.0; Abnormal: Above high normal; Units: %; Status: F Test: EOS %; Value: 1.2; Range: 0.0-3.0; Units: %; Status: F Test: BASO %; Value: 0.5; Range: 0.0-1.0; Units: %; Status: F Test: LARGE UNSTAINED CELL %; Value: 1.6; Range: 0.0-4.0; Units: %; Status: F Test: NEUTROPHILS #; Value: 8.1; Range: 1.8-7.7; Abnormal: Above high normal; Units: K/mm3; Status: F Test: LYMPH #; Value: 1.2; Range: 1.5-4.5; Abnormal: Below low normal; Units: K/mm3; Status: F Test: MONO #; Value: 0.8; Range: 0.0-0.8; Units: K/mm3; Status: F Test: EOS #; Value: 0.1; Range: 0.0-0.50; Units: K/mm3; Status: F Test: BASO #; Value: 0.0; Range: 0.0-0.2; Units: K/mm3; Status: F Test: LARGE UNSTAINED CELL #; Value: 0.2; Range: 0.0-0.4; Units: K/mm3; Status: F Lab Order: [facility]; SPEC'M 03/06/16 22:31 Test: GLUCOSE, FASTING; Value: 96; Range: 80-110; Units: MG/DL; Status: F Test: BLOOD UREA NITROGEN; Value: 19; Range: 7-18; Abnormal: Above high normal; Units: MG/DL; Status: F Test: CREATININE FOR GFR; Value: 1.31; Range: 0.70-1.30; Abnormal: Above high normal; Units: MG/DL; Status: F Test: GLOMERULAR FILTRATION RATE; Value: 58.5; Range: >49; Status: F Test: SODIUM LEVEL; Value: 136; Range: 136-145; Units: MEQ/L; Status: F Test: POTASSIUM SERUM; Value: 4.8; Range: 3.5-5.1; Units: MEQ/L; Status: F Test: CHLORIDE LEVEL; Value: 99; Range: 98-107; Units: MEQ/L; Status: F Test: CARBON DIOXIDE LEVEL; Value: 28; Range: 21-32; Units: MEQ/L; Status: F Test: ANION GAP; Value: 9; Range: 8-16; Units: MEQ/L; Status: F Test: CALCIUM LEVEL; Value: 8.8; Range: 8.8-10.2; Units: MG/DL; Status: F Test Note: ; Units are mL/min/1.73 m2 Chronic Kidney Disease Staging per NKF: Stage I & II GFR >=60 Normal to Mildly Decreased Stage III GFR 30-59 Moderately Decreased Stage IV GFR 15-29 Severely Decreased Stage V GFR <15 Very Little GFR Left ESRD GFR <15 on 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 Lab Order: ESR; SPEC' 03/06/16 22:31 Test: ERYTHROCYTE SEDIMENTATION RATE; Value: 115; Range: 0-20; Abnormal: Above high normal; Units: mm/hr; Status: F Lab Order: CRP; SPEC' 03/06/16 22:31 Test: C REACTIVE PROTEIN QUANTITATIV; Value: 21.60; Range: 0.00-0.30; Abnormal: Above high normal; Units: MG/DL; Status: F Lab Order: UA; SPEC' 03/06/16 20:44 Test: APPEARANCE, URINE; Value: CLEAR; Range: CLEAR; Status: F Test: COLOR, URINE; Value: YELLOW; Range: YELLOW; Status: F Test: PH,URINE; Value: 5.0; Range: 5.0-9.0; Units: UNITS; Status: F Test: SPECIFIC GRAVITY URINE AUTO; Value: 1.019; Range: 1.002-1.035; Status: F Test: PROTEIN, URINE AUTO; Value: NEGATIVE; Range: NEGATIVE; Units: mg/dL; Status: F Test: GLUCOSE, URINE (UA) AUTO; Value: NEGATIVE; Range: NEGATIVE; Units: mg/dL; Status: F Test: KETONE, URINE AUTO; Value: NEGATIVE; Range: NEGATIVE; Units: mg/dL; Status: F Test: UROBILINOGEN, URINE AUTO; Value: 0.2; Range: 0.0-2.0; Units: mg/dL; Status: F Test: BILIRUBIN, URINE AUTO; Value: NEGATIVE; Range: NEGATIVE; Status: F Test: NITRITE, URINE AUTO; Value: NEGATIVE; Range: NEGATIVE; Status: F Test: LEUKOCYTE ESTERASE, URINE AUTO; Value: NEGATIVE; Range: NEGATIVE; Status: F Test: BLOOD, URINE BLOOD; Value: NEGATIVE; Range: NEGATIVE; Status: F Test: WBC, URINE AUTO; Value: 1; Range: 0-3; Units: /HPF; Status: F Test: RBC, URINE AUTO; Value: 1; Range: 0-3; Units: /HPF; Status: F Test: BACTERIA, URINE AUTO; Value: NEGATIVE; Range: NEGATIVE; Status: F Test: SQUAMOUS EPITHELIAL CELL UR AU; Value: 0; Range: 0-6; Units: /HPF; Status: F Test: HYALINE CAST, URINE AUTO; Value: 0; Range: 0-1; Units: /LPF; Status: F Lab Order: Urine Culture; SPEC'M 03/06/16 20:44 Test: URINE CULTURE; Value: <EXTERNAL COMMENT eCWMed> FULL REPORT IN LAB NOTES (eCW and Medent).; Status: F Test: URINE CULTURE; Value: URINE CULTURE RESULT NO GROWTH; Status: F Lab Order: COMPLETE BLOOD COUNT; SPEC'M 03/07/16 07:29 Test: WHITE BLOOD COUNT; Value: 10.2; Range: 4.0-10.0; Abnormal: Above high normal; Units: K/mm3; Status: F Test: RED BLOOD COUNT; Value: 4.05; Range: 4.30-6.10; Abnormal: Below low normal; Units: M/mm3; Status: F Test: HEMOGLOBIN; Value: 11.7; Range: 14.0-18.0; Abnormal: Below low normal; Units: g/dl; Status: F Test: HEMATOCRIT; Value: 36.1; Range: 42.0-52.0; Abnormal: Below low normal; Units: %; Status: F Test: MEAN CORPUSCULAR VOLUME; Value: 89.1; Range: 80.0-96.0; Units: fl; Status: F Test: MEAN CORPUSCULAR HEMOGLOBIN; Value: 28.9; Range: 27.0-33.0; Units: pg; Status: F Test: MEAN CORPUSCULAR HGB CONC; Value: 32.4; Range: 32.0-36.5; Units: g/dl; Status: F Test: RED CELL DISTRIBUTION WIDTH; Value: 13.7; Range: 11.5-14.5; Units: %; Status: F Test: PLATELET COUNT, AUTOMATED; Value: 322; Range: 150-450; Units: k/mm3; Status: F Lab Order: BASIC METABOLIC PROFILE; TAINA 03/07/16 07:29 Test: GLUCOSE, FASTING; Value: 103; Range: 80-110; Units: MG/DL; Status: F Test: BLOOD UREA NITROGEN; Value: 19; Range: 7-18; Abnormal: Above high normal; Units: MG/DL; Status: F Test: CREATININE FOR GFR; Value: 1.52; Range: 0.70-1.30; Abnormal: Above high normal; Units: MG/DL; Status: F Test: GLOMERULAR FILTRATION RATE; Value: 49.2; Range: >49; Status: F Test: SODIUM LEVEL; Value: 135; Range: 136-145; Abnormal: Below low normal; Units: MEQ/L; Status: F Test: POTASSIUM SERUM; Value: 4.4; Range: 3.5-5.1; Units: MEQ/L; Status: F Test: CHLORIDE LEVEL; Value: 97; Range: 98-107; Abnormal: Below low normal; Units: MEQ/L; Status: F Test: CARBON DIOXIDE LEVEL; Value: 25; Range: 21-32; Units: MEQ/L; Status: F Test: ANION GAP; Value: 13; Range: 8-16; Units: MEQ/L; Status: F Test: CALCIUM LEVEL; Value: 9.3; Range: 8.8-10.2; Units: MG/DL; Status: F Test Note: ; Units are mL/min/1.73 m2 Chronic Kidney Disease Staging per NKF: Stage I & II GFR >=60 Normal to Mildly Decreased Stage III GFR 30-59 Moderately Decreased Stage IV GFR 15-29 Severely Decreased Stage V GFR <15 Very Little GFR Left ESRD GFR <15 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 There is a; 2.8 cm mass in the right upper lobe region again noted. This appears larger. No; new infiltrate is seen. Heart is not enlarged. Pleural angles are sharp. There; is mild wedging in one of the lower thoracic vertebrae which likely corresponds; to the T9 lesion seen on PET/CT.; ; Impression:; ; No acute infiltrate. Right lung mass and slightly wedged lower thoracic vertebra; noted.; ; ; Signed by; Nathan Garcia MD 03/06/2016 05:14 P; Radiology Order: -MRI-Spine, Lumbar w/o foll by with con Test: -MRI-Spine, Lumbar w/o foll by with con REASON FOR EXAMINATION: bony mets, right radiculopathy, back pain; MRI LUMBAR SPINE WITHOUT AND WITH CONTRAST:; ; HISTORY: Metastasis.; ; CONTRAST: ProHance 10 mL.; ; Decreased signal intensity on T2-weighted images is present in the L3-4 through; L5-S1 intervertebral discs. The discs are decreased in height. These findings; are consistent with disc degeneration.; ; There is no disc bulge or herniation at the L1-2 through L3-4 levels. There is; hypertrophy of the posterior articulating facets at the L3-4 level. The nerves; exit the neural foramina without compression.; ; A diffuse disc bulge is present at the L4-5 level. There is minimal compression; of the thecal sac. There is hypertrophy of the posterior articulating facets.; The L4 nerves exit the neural foramina without compression.; ; A diffuse disc bulge is present at the L5-S1 level. This abuts the thecal sac; and S1 nerves. There is hypertrophy of the posterior articulating facets. The; L5 nerves exit the neural foramina without compression.; ; The conus medullaris is normal in appearance terminating at the level of the L1-2; intervertebral disc. An area of decreased signal intensity on T1-weighted images; is present in the L5 vertebral body. There is extension into the right L5; pedicle. There is mild homogeneous enhancement with contrast. This is; consistent with a metastasis. There is no fracture. There is no paravertebral; or epidural extension. Increased signal intensity on T2-weighted images is; present in the end plates of the L5 and S1 vertebral bodies. This represents; degenerative change.; ; IMPRESSION:; ; 1. Diffuse disc bulge at the L4-5 level with minimal thecal sac compression.; ; 2. Diffuse disc bulge at the L5-S1 level. This abuts the thecal sac and S1; nerves.; ; 3. There is a metastatic lesion in the L5 vertebral body. There is no fracture.; ; ; ; Signed by; Baron Marquez MD 03/07/2016 08:46 A; Radiology Order: MRI T SPINE W/O FOLL WITH CON Test: MRI T SPINE W/O FOLL WITH CON REASON FOR EXAMINATION: bony mets, back pain, right radiculopathy; MRI THORACIC SPINE WITHOUT AND WITH CONTRAST:; ; HISTORY: Metastasis.; ; CONTRAST: ProHance 12 mL.; ; There is no disc bulge or herniation. Decreased signal intensity on T1-weighted; images is present in the T9 vertebral body. There is extension into the pedicles; and left facet. There is very minimal loss of vertebral body height. There is; mild homogeneous enhancement with contrast. Small paravertebral and epidural; components are present. There is minimal spinal cord compression. There is; extension into the left T9 neural foramen. There is compression of the left T9; nerve in the neural foramen. The right T9 and remaining neural foramen are; patent. Normal signal intensity is present in the remaining thoracic vertebral; bodies. There is no subluxation. The spinal cord is normal in signal intensity.; ; ; IMPRESSION:; ; There is a metastatic lesion in the T9 vertebral body with minimal loss of; vertebral body height. There is paravertebral and epidural extension with; minimal spinal cord compression.; ; ; Signed by; Baron Marquez MD 03/07/2016 08:47 A; Outcome: 21:10 Decision to Hospitalize by Provider. 10 03/07 14:17 Patient left the ED. jml1 Signatures: Dispatcher [employer] EDMS Faye Moss, Informatics Manager Unit deg Larry TrotterRN RN Felicia Ulloa RN RN dls Lucrecia Mckinney, Reg Reg gb Enriqueta Coy,RN RN kr3 Shravan Lloyd, PA-C PA-C ar2 Kathy Torres,RN RN rs3 Bhavna Gamez RN RN sls1 Nixon Wells jml1 Janelle Hinds,RN RN Ambreen NavaRN RN mike Curtis Zelaya, PA-C PA-C cc10 An Osman KimRN RN kas2 Chart Complete MTDD
[2016-03-09] MEDS ORDERED: BISACODYL 10 MG SUPP PR PRN (17:30)
[2016-03-09 18:00] VITALS: BP 121/71
[2016-03-09] MEDS: ALLOPURINOL 300 MG TAB PO SCH (20:14)
[2016-03-09 22:00] VITALS: BP 155/74
[2016-03-10] MEDS: PIPERACILLIN/TAZOBACTAM SOD 3.375 GM in D5W MINI-BAG PLUS 50 ML IV SCH ×4 (00:40→18:33)
[2016-03-10] MEDS: NORCO, ANEXSIA 5/325MG TABLET (HYDROcodone/ACETAMINOPHEN) PO PRN ×3 (01:05→13:36)
[2016-03-10 06:00] VITALS: BP 142/68
[2016-03-10 06:31] LABS: MEAN CORPUSCULAR HEMOGLOBIN 28.7 pg (27.0-33.0); MEAN CORPUSCULAR HGB CONC 31.7 g/dl (32.0-36.5); MEAN CORPUSCULAR VOLUME 90.5 fl (80.0-96.0); RED CELL DISTRIBUTION WIDTH 13.7 % (11.5-14.5); WHITE BLOOD COUNT 6.8 K/mm3 (4.0-10.0)
[2016-03-10 06:58] LABS: CALCIUM LEVEL 8.8 MG/DL (8.8-10.2); CREATININE FOR GFR 1.48 MG/DL (0.70-1.30); GLOMERULAR FILTRATION RATE 50.8 (>49); PERCENT SATURATION 9.7 % (19.7-37.4); POTASSIUM SERUM 4.8 MEQ/L (3.5-5.1)
[2016-03-10] MEDS: SENOKOT S TAB PO SCH ×2 (09:08→20:17)
[2016-03-10] MEDS: GABAPENTIN 300 MG CAP PO SCH ×3 (09:08→20:17)
[2016-03-10] MEDS: oxyCODONE 20 MG CR TAB PO SCH ×2 (09:08→20:18)
[2016-03-10] MEDS: ENOXAPARIN 40 MG/0.4 ML SYRINGE (J1650) SC SCH (09:08)
[2016-03-10] MEDS: AZITHROMYCIN 250 MG TAB PO SCH (09:08)
[2016-03-10] MEDS: MOM 30ML SUSPENSION UDC PO PRN (13:34)
[2016-03-10 14:00] VITALS: BP 142/76
--- NOTE | 2016-03-10 16:26 | IPNPDOC ---
Assessment/Plan Date Seen The patient was seen on 03/10/16. Problems Problems: (1) Pneumonia Status: Acute Problem Text: D4 azithromycin/Zosyn ? post-obstructive PN-febrile/hypoxia vs PE 03/06/16 CXR no infiltrate Requiring O2 to maintain sats. Afebrile since admission, mild leukocytosis. 03/08 -- patient remains on O2, on Zosyn and azithromycin, continues to complain of cough 03/10 still SaO2 low 90s on 1L RA-recheck CXR (2) Anemia Status: Acute Problem Text: obviously ACD, but caution more blood loss eric on Lovenox 03/10 9.4, 15% (TIBC 155), 1469; therefore, + Fe 03/09 down to 9.2 07/2015 hgb 14.9 (3) Intractable back pain Status: Acute Response to Treatment: Stable Problem Specific Plan: Monitor Clinically Problem Text: Currently on morphine [employer] DEVELOPMENT, will work to transition to oral medication for pain control. for palliative XRT Alicia 03/08 03/08 has seen pain management, oral medications ordered and encouraged patient to try them 03/09 - Oxycodone 20 mg po BID, will add Alleene 5/325 1-2 tabs q4h prn c adequate control, d/c morphine [employer]. no BM in 3D-increased regimen (4) Ureteral carcinoma Status: Chronic Response to Treatment: Stable Discussed With: Patient Problem Specific Plan: Monitor Clinically Problem Text: Pt is following with Zeenat/Karan/Alicia failed Tecentriq 03/06/16 WBBS T9/T10 uptake 03/06/16 thoracic/lumbar MRI T9/T10/L5 mets s cord compression 02/2016 PET progressive metastatic disease with multiple hepatic metastases, two skeletal metastases, and one hypermetabolic mass in the right middle lobe of the lung. The T9 lesion in the thoracic spine shows findings suggestive of epidural disease and cord compression. . 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 (6) CKD (chronic kidney disease) stage 3, GFR 30-59 ml/min Status: Chronic Response to Treatment: Stable Problem Text: at baseline cr 1.5, stable lytes (7) Gout Status: Chronic Response to Treatment: Stable Problem Text: no recurrent flares on HD allo 300 (8) Hypertension Status: Chronic Response to Treatment: Stable Problem Text: Stable off 2 home BP meds Plan / VTE VTE Prophylaxis Ordered?: Yes Plan Anticipated Discharge: Home (plan home 03/11 vs 03/12) Subjective Review of Systems CC/HPI The patient is a 65-year-old male admitted with a reason for visit of Metastatic Cancer To Spine. Objective Physical Examination General Exam: Positive: Cooperative, Other (comfortable as long as he remains at rest) ENT Exam: Positive: Mucous membr. moist/pink Neck Exam: Positive: Supple Chest Exam: Positive: Clear to auscultation, Diminished Heart Exam: Positive: Normal S1, Normal S2, Rate Normal, Regular Rhythm Abdomen Exam: Positive: Normal bowel sounds, Soft, Negative: Tenderness Extremity Exam: Negative: Edema Vital Signs/I&O Vital Signs Date Time Temp Pulse Resp B/P Pulse Ox O2 Delivery O2 Flow Rate FiO2 03/10/16 14:06 20 03/10/16 14:00 97.6 88 142/76 92 Nasal Cannula 1.0 I&O- Last 24 Hours up to 6 AM 03/10/16 06:00 Intake Total 820 ml Output Total 1450 ml Balance -630 ml Laboratory Data Labs 24H Laboratory Tests 2 03/10/16 06:01: Anion Gap 8, Blood Urea Nitrogen 16, Creatinine 1.48H, Sodium Level 137, Potassium Level 4.8, Chloride Level 99, Carbon Dioxide Level 30, Calcium Level 8.8, Ferritin 1469H, Glomerular Filtration Rate 50.8, Iron Level 15L, Total Iron Binding Capacity 155L, Transferrin % Saturation 9.7L, Vitamin B12 Level 467 CBC/BMP Laboratory Tests 03/10/16 06:01 Calcium Level 8.8, Red Blood Count 3.27 L, Mean Corpuscular Volume 90.5, Mean Corpuscular Hemoglobin 28.7, Mean Corpuscular Hemoglobin Concent 31.7 L, Red Cell Distribution Width 13.7 Microbiology Microbiology 03/06/16 Blood Culture - Preliminary, Resulted No Growth after 72 hours. All specime... 03/06/16 Blood Culture - Preliminary, Resulted No Growth after 72 hours. All specime... 03/06/16 Urine Culture - Final, Complete Declan Serrano M.D. Mar 10, 2016 16:26
--- NOTE | 2016-03-10 17:53 | REP ---
Chest PA and lateral views: Comparisons are 03/06/[address] of 10/08/2015. The patient's known right lung mass is again identified. By CT there was a smaller left lung mass, not visible on plain films. There is no acute infiltrate. No pleural effusions. Cardiac size is upper normal, unchanged. Mild compression deformity of the approximate T9 vertebral body is again noted, unchanged. Impression: There are no acute cardiopulmonary findings. Signed by Arsalan Mojica MD 03/10/2016 05:43 P
[2016-03-10 18:00] VITALS: BP 141/86
[2016-03-10] MEDS: FERROUS SULFATE 325MG TAB PO SCH (18:33)
[2016-03-10] MEDS: ALLOPURINOL 300 MG TAB PO SCH (20:17)
[2016-03-10 22:00] VITALS: BP 144/72
[2016-03-11] MEDS: PIPERACILLIN/TAZOBACTAM SOD 3.375 GM in D5W MINI-BAG PLUS 50 ML IV SCH ×4 (00:49→18:46)
[2016-03-11] MEDS ORDERED: ACETAMINOPHEN TAB 650MG DOSE (2X325MG) PO PRN (02:30)
[2016-03-11 05:53] LABS: MEAN CORPUSCULAR HEMOGLOBIN 28.4 pg (27.0-33.0); MEAN CORPUSCULAR HGB CONC 32.1 g/dl (32.0-36.5); MEAN CORPUSCULAR VOLUME 88.5 fl (80.0-96.0); RED CELL DISTRIBUTION WIDTH 14.8 % (11.5-14.5); WHITE BLOOD COUNT 7.8 K/mm3 (4.0-10.0)
[2016-03-11 06:00] VITALS: BP 122/63
[2016-03-11 06:05] LABS: CALCIUM LEVEL 8.8 MG/DL (8.8-10.2); CREATININE FOR GFR 1.34 MG/DL (0.70-1.30); POTASSIUM SERUM 4.3 MEQ/L (3.5-5.1)
[2016-03-11] MEDS: NORCO, ANEXSIA 5/325MG TABLET (HYDROcodone/ACETAMINOPHEN) PO PRN ×2 (06:58→13:25)
[2016-03-11 09:36] VITALS: BP 132/78
[2016-03-11] MEDS: ENOXAPARIN 40 MG/0.4 ML SYRINGE (J1650) SC SCH (10:08)
[2016-03-11] MEDS: AZITHROMYCIN 250 MG TAB PO SCH (10:09)
[2016-03-11] MEDS: oxyCODONE 20 MG CR TAB PO SCH ×2 (10:09→20:32)
[2016-03-11] MEDS: GABAPENTIN 300 MG CAP PO SCH ×3 (10:09→20:32)
[2016-03-11] MEDS: FERROUS SULFATE 325MG TAB PO SCH (10:09)
[2016-03-11] MEDS: SENOKOT S TAB PO SCH ×2 (10:09→20:32)
--- NOTE | 2016-03-11 10:57 | IPNPDOC ---
Assessment/Plan Date Seen The patient was seen on 03/11/16. Family Medicine Attending Note: I saw and examined Mr. Tejeda, discussed with AVA Gomez. Agree with their note as documented. When I saw him in the afternoon, Mr. Tejeda was still on 1 L of oxygen. He had not done well with a titration attempt in the morning. The nurses were relatively optimistic that he would do better in the afternoon and if he is more awake. I discussed the possibility of something more concerning than just medications being the etiology of his hypoxia. Specifically I talked about the possibility of a pulmonary embolism since he is hypercoagulable as a paraneoplastic syndrome. He reported that he had a pulmonary embolism in the past and was treated with 6 months of Xarelto. We will see how he does with this titration. Overall I still do believe that his hypoxia relates to pain medication use along with less activity. If he is not able to titrate off by tomorrow morning, I would like to consider a CT angiogram of his pulmonary vessels. 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 post-obstructive PN-febrile/hypoxia vs PE 03/06/16 CXR no infiltrate Requiring O2 to maintain sats. Afebrile since admission, mild leukocytosis. 03/08 -- patient remains on O2, on Zosyn and azithromycin, continues to complain of cough 03/10 still SaO2 low 90s on 1L RA-recheck CXR 03/11 - Will attempt to wean from 1 L, CXR 03/10 without acute disease. Zosyn/ azithro D 5. 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 no BM in 3D-increased regimen (4) Ureteral carcinoma Status: Chronic Response to Treatment: Stable Discussed With: Patient Problem Specific Plan: Monitor Clinically Problem Text: Pt is following with Zeenat/Karan/Karlaedwardarling failed Tecentriq 03/06/16 WBBS T9/T10 uptake 03/06/16 thoracic/lumbar MRI T9/T10/L5 mets s cord compression 02/2016 PET progressive metastatic disease with multiple hepatic metastases, two skeletal metastases, and one hypermetabolic mass in the right middle lobe of the lung. The T9 lesion in the thoracic spine shows findings suggestive of epidural disease and cord compression. . 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 (6) CKD (chronic kidney disease) stage 3, GFR 30-59 ml/min Status: Chronic Response to Treatment: Stable Problem Text: at baseline cr 1.5, stable lytes (7) Gout Status: Chronic Response to Treatment: Stable Problem Text: no recurrent flares on HD allo 300 (8) Hypertension Status: Chronic Response to Treatment: Stable Problem Text: Stable off 2 home BP meds Plan / VTE VTE Prophylaxis Ordered?: Yes Plan Anticipated Discharge: Home (plan home 03/11 vs 03/12) Subjective Review of Systems CC/HPI Pt feels he did well with PT this morning, but has had a hard time weaning from O2 and feels quite fatigued. He is not interested in going home today and in fact is hopeful we will be able to wean him from the O2 prior ot him returning home. Large BM yesterday. Some abd discomfort, better since moved bowels. General: Reports: Fatigue Constitutional: Denies: Chills, Fever Pulmonary: Reports: Dyspnea, Denies: Cough Cardiovascular: Denies: Chest Pain, Palpitations Gastrointestinal: Reports: Constipation, Denies: Diarrhea, Nausea, Vomiting Musculoskeletal: Reports: Back Pain Neurological: Reports: Weakness Psych: Reports: Mood Normal Objective Physical Examination General Exam: Positive: Cooperative, Other (comfortable as long as he remains at rest) ENT Exam: Positive: Mucous membr. moist/pink Neck Exam: Positive: Supple Chest Exam: Positive: Clear to auscultation, Diminished Heart Exam: Positive: Normal S1, Normal S2, Rate Normal, Regular Rhythm Abdomen Exam: Positive: Normal bowel sounds, Soft, Negative: Tenderness Extremity Exam: Negative: Edema Vital Signs/I&O Vital Signs Date Time Temp Pulse Resp B/P Pulse Ox O2 Delivery O2 Flow Rate FiO2 03/11/16 10:09 97.1 80 18 132/78 95 Room Air 1.0 I&O- Last 24 Hours up to 6 AM 03/11/16 06:00 Intake Total 1280 ml Output Total 1000 ml Balance 280 ml Laboratory Data Labs 24H Laboratory Tests 2 03/11/16 05:25: Anion Gap 9, Blood Urea Nitrogen 13, Creatinine 1.34H, Sodium Level 138, Potassium Level 4.3, Chloride Level 99, Carbon Dioxide Level 30, Calcium Level 8.8, Glomerular Filtration Rate 57.0 CBC/BMP Laboratory Tests 03/11/16 05:25 Calcium Level 8.8, Red Blood Count 3.19 L, Mean Corpuscular Volume 88.5, Mean Corpuscular Hemoglobin 28.4, Mean Corpuscular Hemoglobin Concent 32.1, Red Cell Distribution Width 14.8 H Microbiology Microbiology 03/06/16 Blood Culture - Preliminary, Resulted No Growth after 72 hours. All specime... 03/06/16 Blood Culture - Preliminary, Resulted No Growth after 72 hours. All specime... 03/06/16 Urine Culture - Final, Complete ROE DICKSON PA-C Mar 11, 2016 10:57 Thomas Bello MD Mar 11, 2016 22:56
[2016-03-11 14:20] VITALS: BP 141/73
[2016-03-11] MEDS: MOM 30ML SUSPENSION UDC PO PRN (16:17)
[2016-03-11] MEDS: ALLOPURINOL 300 MG TAB PO SCH (20:32)
[2016-03-11 22:00] VITALS: BP 142/73
[2016-03-12] MEDS: PIPERACILLIN/TAZOBACTAM SOD 3.375 GM in D5W MINI-BAG PLUS 50 ML IV SCH ×2 (01:34→06:12)
[2016-03-12 06:00] VITALS: BP 132/68
[2016-03-12] MEDS: NORCO, ANEXSIA 5/325MG TABLET (HYDROcodone/ACETAMINOPHEN) PO PRN ×2 (06:14→14:38)
[2016-03-12 06:18] LABS: MEAN CORPUSCULAR HEMOGLOBIN 28.3 pg (27.0-33.0); MEAN CORPUSCULAR HGB CONC 32.4 g/dl (32.0-36.5); MEAN CORPUSCULAR VOLUME 87.4 fl (80.0-96.0); RED CELL DISTRIBUTION WIDTH 14.8 % (11.5-14.5); WHITE BLOOD COUNT 7.8 K/mm3 (4.0-10.0)
[2016-03-12 06:26] LABS: CREATININE FOR GFR 1.31 MG/DL (0.70-1.30); GLOMERULAR FILTRATION RATE 58.5 (>49); POTASSIUM SERUM 4.4 MEQ/L (3.5-5.1)
[2016-03-12] MEDS: FERROUS SULFATE 325MG TAB PO SCH (09:43)
[2016-03-12] MEDS: AZITHROMYCIN 250 MG TAB PO SCH (09:43)
[2016-03-12] MEDS: ENOXAPARIN 40 MG/0.4 ML SYRINGE (J1650) SC SCH (09:43)
[2016-03-12] MEDS: GABAPENTIN 300 MG CAP PO SCH ×3 (09:43→21:13)
[2016-03-12] MEDS: SENOKOT S TAB PO SCH ×2 (09:43→21:13)
[2016-03-12] MEDS: oxyCODONE 20 MG CR TAB PO SCH ×2 (09:44→21:14)
--- NOTE | 2016-03-12 10:34 | IPNPDOC ---
Assessment/Plan Date Seen The patient was seen on 03/12/16. Family Medicine Attending Note: I saw and examined Mr. Tejeda, discussed with AVA Gomez. Agree with their note as documented. Mr. Tejeda has been weaned from his oxygen and is doing well today with regards to his respiratory status. He is complaining of more abdominal pain, including the intermittent right upper for quadrant pain he has had. It was believed to be from obstipation in the past and I continue to believe this is true. Roe had ordered an abdominal film earlier and on my review this afternoon, it shows abundant stool and gas. He is having some heartburn symptoms as well. He was given Maalox and started on a PPI. Bowel care that was previously ordered has been given today. I ordered magnesium citrate for tomorrow morning if this does not work. I think once we are able to resolve his abdominal issues, he will be able to be discharged home. 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 Enc pt and nurse to increase bowel care for today, has orders. (2) Pneumonia Status: Acute Problem Text: ? post-obstructive PN-febrile/hypoxia vs PE 03/06/16 CXR no infiltrate Requiring O2 to maintain sats. Afebrile since admission, mild leukocytosis. 03/08 -- patient remains on O2, on Zosyn and azithromycin, continues to complain of cough 03/10 still SaO2 low 90s on 1L RA-recheck CXR 03/11 - Will attempt to wean from 1 L, CXR 03/10 without acute disease. Zosyn/ azithro D 5. 03/12 - Successfully weaned from O2. D/c azithromycin, change Zosyn to Augmentin today. 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 no BM in 3D-increased regimen (6) Ureteral carcinoma Status: Chronic Response to Treatment: Stable Discussed With: Patient Problem Specific Plan: Monitor Clinically Problem Text: Pt is following with Zeenat/Karan/Alicia failed Tecentriq 03/06/16 WBBS T9/T10 uptake 03/06/16 thoracic/lumbar MRI T9/T10/L5 mets s cord compression 02/2016 PET progressive metastatic disease with multiple hepatic metastases, two skeletal metastases, and one hypermetabolic mass in the right middle lobe of the lung. The T9 lesion in the thoracic spine shows findings suggestive of epidural disease and cord compression. . (7) Metastatic cancer to spine Status: Acute Response to Treatment: Stable Problem Specific Plan: Monitor Clinically Problem Text: Pt reports that his oncology team is aware of his current condition. (8) CKD (chronic kidney disease) stage 3, GFR 30-59 ml/min Status: Chronic Response to Treatment: Stable Problem Text: at baseline cr 1.5, stable lytes (9) Gout Status: Chronic Response to Treatment: Stable Problem Text: no recurrent flares on HD allo 300 Plan / VTE VTE Prophylaxis Ordered?: Yes Plan Anticipated Discharge: Home (plan home 03/13 or 03/14 depending on how quickly his constipation resolves) Subjective Review of Systems CC/HPI Pt has been weaned from O2. He c/o more persistent RLQ, RUQ, had earlier in admission, felt secondary to obstipation. More persistent since yesterday. Worse with deep breathing. BM small on , Large on Sunday. Denies N/V. General: Reports: Fatigue Constitutional: Denies: Chills, Fever ENT: Denies: Head Aches Skin: Denies: Rash Pulmonary: Denies: Cough, Dyspnea Cardiovascular: Denies: Chest Pain, Palpitations Gastrointestinal: Reports: Abdominal Pain, Denies: Diarrhea, Nausea, Vomiting Neurological: Reports: Weakness Psych: Reports: Mood Normal Objective Physical Examination General Exam: Positive: Alert, Cooperative, Other (comfortable as long as he remains at rest) ENT Exam: Positive: Mucous membr. moist/pink Neck Exam: Positive: Supple Chest Exam: Positive: Clear to auscultation, Diminished Heart Exam: Positive: Normal S1, Normal S2, Rate Normal, Regular Rhythm Abdomen Exam: Positive: Normal bowel sounds, Soft, Negative: Tenderness Extremity Exam: Negative: Edema Vital Signs/I&O Vital Signs Date Time Temp Pulse Resp B/P Pulse Ox O2 Delivery O2 Flow Rate FiO2 03/12/16 09:44 18 03/12/16 06:45 99.7 03/12/16 06:44 Room Air 03/12/16 06:00 105 132/68 92 03/11/16 14:20 1.0 I&O- Last 24 Hours up to 6 AM 03/12/16 06:00 Intake Total 2410 ml Output Total 1400 ml Balance 1010 ml Laboratory Data Labs 24H Laboratory Tests 2 03/12/16 05:47: Anion Gap 9, Blood Urea Nitrogen 12, Creatinine 1.31H, Sodium Level 136, Potassium Level 4.4, Chloride Level 98, Carbon Dioxide Level 29, Calcium Level 9.0, Glomerular Filtration Rate 58.5 CBC/BMP Laboratory Tests 03/12/16 05:47 Calcium Level 9.0, Red Blood Count 3.46 L, Mean Corpuscular Volume 87.4, Mean Corpuscular Hemoglobin 28.3, Mean Corpuscular Hemoglobin Concent 32.4, Red Cell Distribution Width 14.8 H Microbiology Microbiology 03/06/16 Blood Culture - Final, Complete NO GROWTH AFTER 5 DAYS 03/06/16 Blood Culture - Final, Complete NO GROWTH AFTER 5 DAYS 03/06/16 Urine Culture - Final, Complete ROE DICKSON PA-C Mar 12, 2016 10:34 Thomas Bello MD Mar 12, 2016 21:43
[2016-03-12 14:00] VITALS: BP 135/83
[2016-03-12] MEDS: PANTOPRAZOLE 40MG TAB (PROTONIX) PO SCH (16:01)
[2016-03-12] MEDS: MAALOX 30 ML SUSP *UDC PO PRN (16:01)
[2016-03-12] MEDS: AUGMENTIN 500 MG TAB PO SCH ×2 (16:01→21:13)
[2016-03-12] MEDS: ALLOPURINOL 300 MG TAB PO SCH (21:14)
[2016-03-12] MEDS: MOM 30ML SUSPENSION UDC PO PRN (21:15)
[2016-03-12 22:00] VITALS: BP 158/78
[2016-03-13] MEDS: NORCO, ANEXSIA 5/325MG TABLET (HYDROcodone/ACETAMINOPHEN) PO PRN (04:48)
[2016-03-13 06:00] VITALS: BP 134/80
[2016-03-13 06:11] LABS: MEAN CORPUSCULAR HEMOGLOBIN 28.5 pg (27.0-33.0); MEAN CORPUSCULAR VOLUME 88.9 fl (80.0-96.0); RED CELL DISTRIBUTION WIDTH 13.8 % (11.5-14.5); WHITE BLOOD COUNT 7.4 K/mm3 (4.0-10.0)
[2016-03-13 06:39] LABS: CALCIUM LEVEL 8.9 MG/DL (8.8-10.2); CREATININE FOR GFR 1.32 MG/DL (0.70-1.30); GLOMERULAR FILTRATION RATE 57.9 (>49); POTASSIUM SERUM 4.7 MEQ/L (3.5-5.1)
[2016-03-13] MEDS ORDERED: MAGNESIUM CITRATE 300 ML BTL PO PRN (08:00)
[2016-03-13] MEDS: MAALOX 30 ML SUSP *UDC PO PRN ×2 (08:11→15:59)
[2016-03-13] MEDS: PANTOPRAZOLE 40MG TAB (PROTONIX) PO SCH (08:12)
[2016-03-13] MEDS: SENOKOT S TAB PO SCH ×2 (08:12→20:32)
[2016-03-13] MEDS: GABAPENTIN 300 MG CAP PO SCH ×3 (08:12→20:33)
[2016-03-13] MEDS: oxyCODONE 20 MG CR TAB PO SCH ×2 (08:12→20:32)
[2016-03-13] MEDS: FERROUS SULFATE 325MG TAB PO SCH (08:12)
[2016-03-13] MEDS: AUGMENTIN 500 MG TAB PO SCH ×3 (08:12→20:32)
--- NOTE | 2016-03-13 11:00 | IPNPDOC ---
Assessment/Plan Date Seen The patient was seen on 03/13/16. Family Medicine Attending Note: I saw and examined the patient early this morning at approximately 06:45; I discussed with AVA Rodriguez and I agree with his note below. Patient denies SOB this morning; PNA is being well- managed on augmentin. He continues to have RUQ abdominal discomfort but no tenderness on exam; I suspect this is still related to constipation as he has only had small bowel movements. Will continue mag citrate and monitor for improvement, which I suspect will occur with BMs. (KES) Problems Problems: (1) Abdominal pain Status: Acute Response to Treatment: Worse Discussed With: Nurse, Patient Problem Specific Plan: Monitor Clinically Problem Text: 03/13 - still with Abd pain and constipation. Had a couple small BMs earlier but still feels constipated. Mag Citrate was ordered for this AM, but pt just started drinking it presently. 03/12 - Will obtain abd films. Enc pt and nurse to increase bowel care for today , has orders. (2) Pneumonia Status: Acute Problem Text: ? post-obstructive PN-febrile/hypoxia vs PE 03/06/16 CXR no infiltrate Requiring O2 to maintain sats. Afebrile since admission, mild leukocytosis. 03/08 -- patient remains on O2, on Zosyn and azithromycin, continues to complain of cough 03/10 still SaO2 low 90s on 1L RA-recheck CXR 03/11 - Will attempt to wean from 1 L, CXR 03/10 without acute disease. Zosyn/ azithro D 5. 03/12 - Successfully weaned from O2. D/c azithromycin, change Zosyn to Augmentin today. 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 no BM in 3D-increased regimen (6) Ureteral carcinoma Status: Chronic Response to Treatment: Stable Discussed With: Patient Problem Specific Plan: Monitor Clinically Problem Text: Pt is following with Zeenat/Karan/Alicia failed Tecentriq 03/06/16 WBBS T9/T10 uptake 03/06/16 thoracic/lumbar MRI T9/T10/L5 mets s cord compression 02/2016 PET progressive metastatic disease with multiple hepatic metastases, two skeletal metastases, and one hypermetabolic mass in the right middle lobe of the lung. The T9 lesion in the thoracic spine shows findings suggestive of epidural disease and cord compression. . (7) Metastatic cancer to spine Status: Acute Response to Treatment: Stable Problem Specific Plan: Monitor Clinically Problem Text: Pt reports that his oncology team is aware of his current condition. (8) CKD (chronic kidney disease) stage 3, GFR 30-59 ml/min Status: Chronic Response to Treatment: Stable Problem Text: at baseline cr 1.5, stable lytes (9) Gout Status: Chronic Response to Treatment: Stable Problem Text: no recurrent flares on HD allo 300 Plan / VTE VTE Prophylaxis Ordered?: Yes Plan Anticipated Discharge: Home (plan home 03/13 or 03/14 depending on how quickly his constipation resolves) Subjective Review of Systems CC/HPI The patient is a 65-year-old male admitted with a reason for visit of Metastatic Cancer To Spine. Events since last encounter Pt states he feels the same as yesterday. He still has right sided abd pain. He states he had a couple very small BMs and still feels very constipated. He states his breathing is better. He just returned from Radiation. Constitutional: Denies: Chills, Fever Pulmonary: Denies: Dyspnea Cardiovascular: Denies: Chest Pain Gastrointestinal: Reports: Abdominal Pain, Constipation, Denies: Nausea, Vomiting Objective Physical Examination General Exam: Positive: Alert, Cooperative, Other (comfortable as long as he remains at rest) ENT Exam: Positive: Mucous membr. moist/pink Neck Exam: Positive: Supple Chest Exam: Positive: Clear to auscultation, Diminished Heart Exam: Positive: Normal S1, Normal S2, Rate Normal, Regular Rhythm Abdomen Exam: Positive: Normal bowel sounds, Soft, Negative: Tenderness Extremity Exam: Negative: Edema Vital Signs/I&O Vital Signs Date Time Temp Pulse Resp B/P Pulse Ox O2 Delivery O2 Flow Rate FiO2 03/13/16 08:12 Room Air 03/13/16 08:12 20 03/13/16 06:00 99.0 101 134/80 92 03/11/16 14:20 1.0 I&O- Last 24 Hours up to 6 AM 03/13/16 06:00 Intake Total 2120 ml Output Total 1200 ml Balance 920 ml Laboratory Data Labs 24H Laboratory Tests 2 03/13/16 05:19: Anion Gap 8, Blood Urea Nitrogen 13, Creatinine 1.32H, Sodium Level 136, Potassium Level 4.7, Chloride Level 97L, Carbon Dioxide Level 31, Calcium Level 8.9, Glomerular Filtration Rate 57.9 CBC/BMP Laboratory Tests 03/13/16 05:19 Calcium Level 8.9, Red Blood Count 3.40 L, Mean Corpuscular Volume 88.9, Mean Corpuscular Hemoglobin 28.5, Mean Corpuscular Hemoglobin Concent 32.0, Red Cell Distribution Width 13.8 Microbiology Microbiology 03/06/16 Blood Culture - Final, Complete NO GROWTH AFTER 5 DAYS 03/06/16 Blood Culture - Final, Complete NO GROWTH AFTER 5 DAYS 03/06/16 Urine Culture - Final, Complete Froylan Trotter RPA-C Mar 13, 2016 11:00 BENJI RAMOS MD Mar 13, 2016 13:12
--- NOTE | 2016-03-13 11:13 | REP ---
Supine abdomen single AP view: Comparison is the CT of the abdomen pelvis dated 08/02/2015. The patient has a left nephrectomy. Surgical clips are noted in the left renal fossa. The bowel gas pattern is normal. There are pelvic calcifications, likely phleboliths. The skeletal structures and soft tissues are otherwise unremarkable. Signed by Arsalan Mojica MD 03/12/2016 10:52 A
[2016-03-13] MEDS: ENOXAPARIN 40 MG/0.4 ML SYRINGE (J1650) SC SCH (12:20)
[2016-03-13 14:00] VITALS: BP 158/80
[2016-03-13] MEDS: ALLOPURINOL 300 MG TAB PO SCH (20:33)
[2016-03-13 22:00] VITALS: BP 146/76
[2016-03-14 06:00] VITALS: BP 132/65
[2016-03-14] MEDS: MAALOX 30 ML SUSP *UDC PO PRN (06:02)
[2016-03-14 06:32] LABS: ALBUMIN 2.4 GM/DL (3.2-5.2); ALBUMIN/GLOBULIN RATIO 0.56 (1.00-1.93); ALKALINE PHOSPHATASE 181 U/L (45-117); ALT/SGPT 33 U/L (12-78); ANION GAP 8 MEQ/L (8-16); AST/SGOT 29 U/L (15-37); BILIRUBIN,TOTAL 0.4 MG/DL (0.2-1.0); BLOOD UREA NITROGEN 13 MG/DL (7-18); CALCIUM LEVEL 8.9 MG/DL (8.8-10.2); CARBON DIOXIDE LEVEL 29 MEQ/L (21-32); CHLORIDE LEVEL 99 MEQ/L (98-107); CREATININE FOR GFR 1.27 MG/DL (0.70-1.30); GLOMERULAR FILTRATION RATE > 60.0 (>49); GLUCOSE, FASTING 98 MG/DL (80-110); POTASSIUM SERUM 4.4 MEQ/L (3.5-5.1); SODIUM LEVEL 136 MEQ/L (136-145); TOTAL PROTEIN 6.7 GM/DL (6.4-8.2)
[2016-03-14 07:13] LABS: MEAN CORPUSCULAR HEMOGLOBIN 29.1 pg (27.0-33.0); MEAN CORPUSCULAR HGB CONC 32.2 g/dl (32.0-36.5); MEAN CORPUSCULAR VOLUME 90.6 fl (80.0-96.0); PLATELET COUNT, AUTOMATED 258 k/mm3 (150-450); WHITE BLOOD COUNT 7.3 K/mm3 (4.0-10.0)
[2016-03-14 08:06] LABS: HYPOCHROMASIA 1+
[2016-03-14] MEDS: PANTOPRAZOLE 40MG TAB (PROTONIX) PO SCH (09:28)
[2016-03-14] MEDS: GABAPENTIN 300 MG CAP PO SCH ×2 (09:28→16:39)
[2016-03-14] MEDS: SENOKOT S TAB PO SCH (09:28)
[2016-03-14] MEDS: FERROUS SULFATE 325MG TAB PO SCH ×2 (09:28→09:34)
[2016-03-14] MEDS: AUGMENTIN 500 MG TAB PO SCH ×2 (09:28→16:39)
[2016-03-14] MEDS: oxyCODONE 20 MG CR TAB PO SCH (09:30)
[2016-03-14] MEDS: ENOXAPARIN 40 MG/0.4 ML SYRINGE (J1650) SC SCH (09:30)
[2016-03-14] MEDS ORDERED: AMOX500T2 PO (12:43)
[2016-03-14] MEDS ORDERED: PANT40TA2 PO (12:43)
[2016-03-14] MEDS ORDERED: NORCOTAB PO (12:43)
[2016-03-14] MEDS ORDERED: MILKSUS PO (12:43)
[2016-03-14] MEDS ORDERED: SENN1TAB2 PO (12:43)
[2016-03-14] MEDS ORDERED: OXYC20TA21 PO (12:43)
[2016-03-14] MEDS ORDERED: GABA300C3 PO (12:43)
[2016-03-14] MEDS ORDERED: FERR325T PO (12:43)
[2016-03-14] MEDS ORDERED: MIRA33504 PO (12:43)
[2016-03-14 14:00] VITALS: BP 128/76
--- NOTE | 2016-03-14 14:21 | DSES ---
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 He has also had significant abdominal pain. PAST MEDICAL HISTORY: Significant for the above-mentioned metastatic ureteral cancer, hypertension, history of gout. Pertinent labs on admission: White count 10.2, hemoglobin 10.4, platelets 251,000. Sodium 136, potassium 4.8, BUN 19, creatinine 1.31, C-reactive protein was 21. Chest x-ray showed no acute infiltrate but a right lung mass and slightly a wedged lower thoracic vertebra. Thoracic spine MRI showed a metastatic lesion in the T9 vertebral body with minimal loss of vertebral body height. Perivertebral and epidural extension with minimal spinal cord compression. Lumbar MRI showed diffuse disc bulging and a metastatic lesion in the L5 vertebral body with no fracture. HOSPITAL COURSE: The patient was admitted for severe abdominal pain and back pain. His abdominal pain was felt to be related to constipation from his narcotics. He has been given significant bowel care during the hospitalization and is now having some results and his abdominal pain has essentially resolved. He will continue with bowel care as an outpatient with MiraLAX, Senokot, Colace, milk of magnesia as needed. 2. Back pain. The etiology of this is likely related to his metastatic lumbar and thoracic spinal lesions with also underlying disc bulging. His right back pain has improved. He is now on pain control with oxycodone 20 mg twice a day and [place] 5 mg one to two tablets every 6 hours as needed. He was on Percocet prior to admission. He is advised to discontinue this and will utilize the oxycodone and [place]. We will defer further adjustments in pain medications to his primary care provider. 3. Pneumonia. It is felt that he may have some postobstructive pneumonia due to his presentation with fever as well as hypoxemia. He was started on Zosyn for possible postobstructive pneumonia related to the right lung lesion. His fever is resolved. His oxygen saturations have normalized. He will remain on this as an outpatient, he will complete a total of 14 days of antibiotics. 4. Anemia, most likely anemia of chronic disease. Hemoglobin has been essentially stable throughout the hospitalization, it is 9.7 at the time of discharge. 5. Hypertension. Blood pressure is stable. He is not on any antihypertensives here in the hospital. I would hold those until he follows up with his primary care provider to determine whether they should be restarted. DISPOSITION: He is stable for discharge home to followup with Deisy Steen in oncology as an outpatient. MEDICATIONS: - oxycodone 20 mg twice a day - [place] 5/325 one tablet every 4 hours as needed for pain - Augmentin 500 mg three times a day - iron sulfate 325 mg daily - gabapentin 300 mg three times a day - milk of magnesia 30 mL daily as needed for constipation - Protonix 40 mg daily - MiraLax 17 grams daily - senna one tablet twice a day - allopurinol 300 mg daily - B12 1000 mcg daily His amlodipine, fosinopril, indomethacin and Percocet have all been held. DISCHARGE DIAGNOSES: 1. Pneumonia, probably postobstructive 2. Abdominal pain secondary to constipation. 3. Acute right low back pain. 4. Compression fractures T9 related to metastatic lesion. 5. Metastatic lesion in L5. 6. Right lung mass. 7. Ureteral cancer with metastatic disease. 8. History of hypertension.
== END 2016-03-14 16:50 | disposition home or self-care (01) | DRG 947 ==
LOC: M ED 13:46 → M ED INP 22:19 → M MSPAV 03-07 14:04
PROVIDERS: ADMIT Internal Medicine; ATTEND Family Medicine
DX: G89.3 Neoplasm related pain (acute) (chronic) (principal); J18.9 Pneumonia, unspecified organism; C79.51 Secondary malignant neoplasm of bone; C78.01 Secondary malignant neoplasm of right lung; C78.7 Secondary malignant neoplasm of liver and intrahepatic bile duct; C66.2 Malignant neoplasm of left ureter; M51.06 Intervertebral disc disorders with myelopathy, lumbar region; C67.9 Malignant neoplasm of bladder, unspecified; D63.8 Anemia in other chronic diseases classified elsewhere; R09.02 Hypoxemia; M51.27 Other intervertebral disc displacement, lumbosacral region; N18.3 Chronic kidney disease, stage 3 (moderate); M84.58XD Pathological fracture in neoplastic disease, other specified site, subsequent encounter for fracture with routine healing; I12.9 Hypertensive chronic kidney disease with stage 1 through stage 4 chronic kidney disease, or unspecified chronic kidney disease; M79.1 Myalgia; M10.9 Gout, unspecified; K59.03 Drug induced constipation; T40.605A Adverse effect of unspecified narcotics, initial encounter; Z90.5 Acquired absence of kidney; Z79.899 Other long term (current) drug therapy; Z92.3 Personal history of irradiation; Z92.21 Personal history of antineoplastic chemotherapy

== ENCOUNTER → 2016-03-06 | Outpatient (CLI) | payer MEDICARE ==
[~2016-03-06] MED LIST changes: +AMLO5TAB2 PO; +FOSI20TA PO; +INDO50CA PO; +OXYC1TAB23 PO; +TARTCAP PO; +VITA10002 PO; +ZOSYN 3.375 GM VIAL (J2543) As Ordered ONE; +ZYLO300T4 PO; +cefTRIAXone SOD 1 GM VIAL (J0696) As Ordered ONE
--- NOTE | 2016-03-06 13:58 | REP ---
WHOLE-BODY RADIONUCLIDE BONE SCAN: HISTORY: Urothelial carcinoma. Spinal cord compression. Comparison is made with PET/CT study March 01, 2016. This showed a lesion at T9 with findings suggesting epidural disease and cord compression. TECHNIQUE: 21.9 mCi technetium 99m MDP is injected and standard whole body bone scan imaging is acquired. SCINTIGRAPHIC FINDINGS: There is a focus of increased uptake at the T9 vertebral body more prominent on the right than the left compatible with the lesion seen on PET/CT. There is also some increased uptake in the left pedicle at T9 and in the region of the left costovertebral joint at T10. There is asymmetric increased uptake in the right hip region. The pattern here appears arthritic. There is unilateral right renal uptake. The left kidney is surgically absent. There is mild arthritic uptake in each foot. IMPRESSION: Increased uptake in the T9 and T10 vertebral body regions compatible with the metastatic lesions seen on PET/CT. Arthritic uptake in the right hip. No other skeletal lesions seen. Signed by Nathan Garcia MD 03/06/2016 02:49 P
== END ==
LOC: M RAD 10:27
PROVIDERS: ATTEND Radiology Radiation Oncology
DX: C67.9 Malignant neoplasm of bladder, unspecified (principal); M16.11 Unilateral primary osteoarthritis, right hip; Z90.5 Acquired absence of kidney

== ENCOUNTER 2016-03-15 11:07 | Outpatient (RCR) | payer MEDICARE ==
[~2016-03-15 11:07] MED LIST changes: +AMLO5TAB2 PO; +AMOX500T2 PO; +FERR325T PO; +FOSI20TA PO; +GABA300C3 PO; +INDO50CA PO; +MILKSUS PO; +MIRA33504 PO; +NORCOTAB PO; +OXYC1TAB23 PO; +OXYC20TA21 PO; +PANT40TA2 PO; +SENN1TAB2 PO; +TARTCAP PO; +VITA10002 PO; +ZYLO300T4 PO
--- NOTE | 2016-03-21 10:28 | RADONC ---
RADIATION ONCOLOGY PROGRESS NOTE DATE: 03/20/2016 CHART NUMBER: [id number] Mr. Tejeda is presently at a dose of 2100 cGy to his lumbar spine. He has completed radiation to his thoracic spine. The patient reports that his pain has improved and he is reducing his pain medication. He also reports that he has had a significant amount of nausea and vomiting and has been unable to keep anything down. The patient's review of systems is positive for nausea, vomiting, as well as some continued pain, but is otherwise noncontributory. He denies nausea, vomiting, fevers, chills, night sweats, diplopia, headaches, anxiety or depression, anorexia, weight loss, visual disturbances, chest pain, urinary or bowel difficulties, bone pain, or neurological problems. PHYSICAL EXAMINATION: The patient's weight appears to be down 11 pounds. His skin shows no evidence of radiation change present. The remainder of his physical exam remains unchanged. I had a very lengthy discussion with this patient and have recommended that he have some IV fluids at this time. I have also recommended some anti-nausea medication. The patient says he is sick of pills and does not wish to take any further medication. He reports that he is urinating and wishes to continue with the treatment. He has refused IV fluids at this time. Again I expressed concern with possible dehydration in this patient. We will be seeing him tomorrow prior to treatment and we will weigh him again and once again recommend IV fluids. If the patient's weight does not stabilize radiation will be withheld. Once again in summary, I have recommended IV fluids at this point and the patient has refused. I have recommended antiemetic therapy and the patient has refused. We will be seeing him prior to any further radiation. I have recommended he come into the emergency room if he feels weaker this evening. I have also instructed him to contact me if we could be of any assistance in the meantime.
--- NOTE | 2016-03-28 11:19 | RADONC ---
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 ECOG performance status is 4. TREATMENT SUMMARY: Mr. Tejeda is a 65-year-old male with the diagnosis of widely metastatic end-stage ureteral cancer who presented to us for consideration of palliative radiation therapy initially to the T9 vertebral body and subsequently to the L5 vertebral body. We treated the patient from T8-T10 for a dose of 3000 centigrade delivered in 10 fractions of 300 centigrade each over 13 elapsed days from 03/02/2016 through 03/15/2016. The patient's T-spine was treated on the linear accelerator utilizing an 18 MV photon beam via single posterior field prescribed to a depth of 8 cm. In addition, we treated the patient from L4 through S1 for a dose of 2100 centigrade delivered in 7 fractions of 300 centigrade each from 03/09/2016 through 03/20/2016. Unfortunately, this patient's condition continued to deteriorate. He discontinued treatment and signed up for hospice. I hope we have been of some benefit to this unfortunate gentleman. Please free to contact me if I could be of any further assistance or provide you with any information. As always, warm regards. Edited: 03/29/2015 [id number] cc: Nila Russo MD
== END 2016-04-11 ==
LOC: M ONCR 11:07
PROVIDERS: ATTEND Radiology Radiation Oncology
DX: C79.51 Secondary malignant neoplasm of bone (principal); C66.2 Malignant neoplasm of left ureter

== ENCOUNTER → 2016-03-20 | Outpatient (REF) | payer MEDICARE ==
[2016-03-20 12:39] LABS: BASO % 0.1 % (0.0-1.0); EOS # 0.2 K/mm3 (0.0-0.50); EOS % 2.2 % (0.0-3.0); LARGE UNSTAINED CELL # 0.2 K/mm3 (0.0-0.4); LYMPH # 0.6 K/mm3 (1.5-4.5); LYMPH % 4.6 % (24.0-44.0); MEAN CORPUSCULAR HEMOGLOBIN 28.3 pg (27.0-33.0); MEAN CORPUSCULAR HGB CONC 31.8 g/dl (32.0-36.5); MEAN CORPUSCULAR VOLUME 89.2 fl (80.0-96.0); MONO % 10.5 % (0.0-5.0); NEUTROPHILS # 7.4 K/mm3 (1.8-7.7); NEUTROPHILS % 80.6 % (36.0-66.0); PLATELET COUNT, AUTOMATED 175 k/mm3 (150-450); RED CELL DISTRIBUTION WIDTH 14.9 % (11.5-14.5); WHITE BLOOD COUNT 9.2 K/mm3 (4.0-10.0)
[2016-03-20 12:52] LABS: CALCIUM LEVEL 8.9 MG/DL (8.8-10.2); CREATININE FOR GFR 1.41 MG/DL (0.70-1.30); GLOMERULAR FILTRATION RATE 53.7 (>49); POTASSIUM SERUM 4.2 MEQ/L (3.5-5.1)
== END ==
LOC: M SFHCPLAZ 10:21
PROVIDERS: ATTEND Physician Assistant Medical
DX: J18.9 Pneumonia, unspecified organism (principal)
CPT/HCPCS: 36415; 80048; 85025; G0463